=== PATIENT | male | born 1975 | race Hispanic/Latino ===

== ENCOUNTER 2017-04-27 16:26 | Inpatient (IN) | payer MEDICARE, OTHER ==
[2017-04-27] MEDS ORDERED: Morphine 5 MG/ML SYRINGE IVP STA (16:41)
[2017-04-27 17:00] LABS: BASO # 0.08 K/mm3 (0.0-2.0); BASO % 0.6 % (0.0-3.0); EOS # 0.2 (0.0-0.7); EOS % 1.1 % (1.5-5.0); GRAN # 6.93 (1.4-6.5); LYMPH # 5.8 (1.2-3.4); LYMPH % 41.1 % (22.0-35.0); MEAN CELL VOLUME 98.6 fl (80.0-105.0); MEAN CORPUSCULAR HEMOGLOBIN 32.5 pg (25.0-35.0); MONO # 1.2 (0.1-0.6); MONO % 8.2 % (1.0-6.0); RBC 5.75 10^6/uL (3.5-6.1); RED CELL DISTRIBUTION WIDTH 15.4 % (11.5-14.5); WHITE BLOOD COUNT 14.1 10^3/ul (4.5-11.0)
[2017-04-27 17:09] LABS: INR 1.12 (0.93-1.08); PARTIAL THROMBOPLASTIN TIME 43.6 Seconds (25.1-36.5); PROTHROMBIN TIME 12.8 SECONDS (9.4-12.5)
[2017-04-27 17:24] LABS: TROPONIN I < 0.01 ng/mL
[2017-04-27 17:25] LABS: HEMOGLOBIN 18.7 g/dL (14.0-18.0)
[2017-04-27 17:29] LABS: ALT/SGPT 697 U/L (7-56); BLOOD UREA NITROGEN 9 mg/dL (7-21); CALCIUM 10.8 mg/dL (8.4-10.5); GFR AFRICAN-AMERICAN > 60; GFR NON-AFRICAN AMERICAN > 60; MAGNESIUM 2.4 mg/dL (1.7-2.2)
[2017-04-27] MEDS ORDERED: Sodium Chloride 0.9% 1,000 ML IV STA ×2 (17:36→19:32)
[2017-04-27 17:37] LABS: AST/SGOT 372 U/L (17-59)
[2017-04-27] MEDS ORDERED: HYDROmorphone 1 mg/ml ISec IVP STA (17:38)
[2017-04-27] MEDS ORDERED: Iohexol 350 MG/100 ML VIAL ONE (17:42)
--- NOTE | 2017-04-27 18:05 | RAD ---
HISTORY: Chest pain. Portable study 17:37. COMPARISON: No prior. FINDINGS: LUNGS: No active pulmonary disease. PLEURA: No significant pleural effusion identified, no pneumothorax apparent. CARDIOVASCULAR: No radiographic findings to suggest acute or significant cardiovascular disease. OSSEOUS STRUCTURES: No significant abnormalities. VISUALIZED UPPER ABDOMEN: Normal. OTHER FINDINGS: None. IMPRESSION: No active disease. Limitations of the current examination: Portable technique and poor inspiratory effort.
[2017-04-27 18:07] LABS: VENOUS BLOOD GAS BASE EXCESS -3.6 mmol/L (0.0-2.0); VENOUS BLOOD GAS PO2 133 mm/Hg (30-55); VENOUS BLOOD PH 7.39 (7.32-7.43)
[2017-04-27 18:12] LABS: ALBUMIN 5.2 g/dL (3.0-4.8)
[2017-04-27 18:14] LABS: ALB/GLOB RATIO 0.9 (1.1-1.8)
--- NOTE | 2017-04-27 18:51 | CT ---
PROCEDURE: CT Angiography Chest, Abdomen and Pelvis with and without intravenous contrast HISTORY: back pain COMPARISON: None. TECHNIQUE: Contiguous axial images of the chest, abdomen and pelvis were obtained in the phase of aortic enhancement. A noncontrast enhanced CT of the chest was also obtained to evaluate for possible intramural thrombus. Coronal and sagittal reformats were generated. IV dose administered: 100 cc Omnipaque 350 Radiation dose: Total exam DLP = 2536.27 mGy-cm. This CT exam was performed using one or more of the following dose reduction techniques: Automated exposure control, adjustment of the mA and/or kV according to patient size, and/or use of iterative reconstruction technique. FINDINGS: CT ANGIOGRAPHY OF THE CHEST WITH & WITHOUT CONTRAST: AORTA (CHEST AND ABDOMEN): The thoracic and abdominal aorta are unremarkable, without aneurysm, dissection or rupture. No intramural thrombus identified in the thoracic aorta on the non-contrast ct of the chest. The celiac axis, superior mesenteric artery, inferior mesenteric artery and the renal arteries are widely patent. The pelvic arteries are unremarkable. LUNGS: Clear. No nodule, mass or consolidation. MEDIASTINUM: Unremarkable. Normal caliber aorta and pulmonary arterial trunk. No aortic dissection. Normal size heart. LYMPH NODES: Unremarkable. PLEURA: Unremarkable. No pneumothorax. No pleural fluid. BONES: Unremarkable. OTHER FINDINGS: None. CT ANGIOGRAPHY OF THE ABDOMEN AND PELVIS WITH CONTRAST: LIVER: Hepatic steatosis. No focal masses. No intrahepatic bile duct dilatation or perihepatic ascites. GALLBLADDER AND BILE DUCTS: Status post cholecystectomy. No abnormality is seen in the gallbladder fossa. PANCREAS: Unremarkable. No gross lesion or ductal dilatation. SPLEEN: Unremarkable. ADRENALS: Unremarkable. No mass. KIDNEYS AND URETERS: Unremarkable. No hydronephrosis. No solid mass. VASCULATURE: Unremarkable. No aortic aneurysm. STOMACH AND BOWEL: Unremarkable. No obstruction. No gross mural thickening. Constipation without fecal impaction or obstruction. APPENDIX: Normal appendix. PERITONEUM: Unremarkable. No free fluid. No free air. LYMPH NODES: Unremarkable. No enlarged lymph nodes. BLADDER: Unremarkable. REPRODUCTIVE: Unremarkable. BONES: No acute fractureLoss of height of L1 and L3 vertebral bodies. The L1 finding was seen on a prior plain film radiographs from 08/14/2012. The L3 abnormalities new since that time. There are retropulsed fragments from at L1 and L3 impressing upon the spinal canal. This should be producing a mild degree of canal stenosis at L1 and a greater degree of narrowing at L3. There is partial lumbarization of the 1st sacral element. . OTHER FINDINGS: None. IMPRESSION: No evidence of aortic aneurysm or dissection. Fractures of L1 and L3 vertebral bodies with retropulsed fragments. The finding at L1 was seen on a prior plain film from 2012.
[2017-04-27] MEDS ORDERED: Metoprolol 1 mg/ml Inj IVP STA (19:32)
[2017-04-27] MEDS ORDERED: HYDROmorphone 0.5 mg/0.5 ml ISec IVP STA (20:11)
--- NOTE | 2017-04-27 20:53 | CT ---
EXAM: CT Head Without Intravenous Contrast CLINICAL HISTORY: 41 years old, male; Signs and symptoms; Syncope and collapse; Additional info: Loc TECHNIQUE: Axial computed tomography images of the head/brain without intravenous contrast. All CT scans at this facility use one or more dose reduction techniques, viz.: automated exposure control; ma/kV adjustment per patient size (including targeted exams where dose is matched to indication; i.e. head); or iterative reconstruction technique. Coronal and sagittal reformatted images were created and reviewed. COMPARISON: No relevant prior studies available. FINDINGS: Brain: Mild atrophy. No intracranial hemorrhage. No mass. No definite edema. Ventricles: No hydrocephalus. Bones/joints: No acute fracture. Soft tissues: Unremarkable. Sinuses: Scattered minimal mucosal thickening. RIGHT frontal retention cyst. Mastoid air cells: No mastoid effusion. Orbits: Unremarkable as visualized. IMPRESSION: 1. No definite acute intracranial abnormality. 2. Incidental/non-acute findings are described above.
[2017-04-27 21:01] LABS: URINE BILIRUBIN NEGATIVE (NEGATIVE); URINE BLOOD TRACE-INTACT (NEGATIVE); URINE GLUCOSE (UA) NEGATIVE (NEGATIVE); URINE LEUKOCYTE ESTERASE NEGATIVE Leu/uL (NEGATIVE); URINE NITRATE NEGATIVE (NEGATIVE); URINE PROTEIN NEGATIVE mg/dL (<30 mg/dL)
[2017-04-27 21:02] LABS: URINE APPEARANCE CLEAR (CLEAR); URINE COLOR YELLOW (YELLOW)
[2017-04-27 21:15] LABS: BARBITURATES, UR NEGATIVE (NEGATIVE); BENZODIAZEPINES, UR NEGATIVE (NEGATIVE); PHENCYCLIDINE, UR NEGATIVE (NEGATIVE)
[2017-04-27 21:17] LABS: URINE RBC 0 - 2 /hpf (0-2); URINE WBC 0 - 2 /hpf (0-6)
[2017-04-27 21:42] LABS: OPIATES, UR POSITIVE (NEGATIVE)
[2017-04-27 21:52] LABS: HDL CHOLESTEROL 46 mg/dL (29-60)
[2017-04-27 22:02] LABS: LDL CHOLESTEROL 160 mg/dL (0-129)
[2017-04-27] MEDS: Folic Acid 1 MG, Thiamine 100 MG, Multivitamin (MVI) 10 ML in Dextrose 5% In Water 1,00... IV SCH (23:11)
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
[2017-04-27 23:22] LABS: VENOUS BLOOD GAS BASE EXCESS -3.1 mmol/L (0.0-2.0); VENOUS BLOOD GAS PO2 118 mm/Hg (30-55); VENOUS BLOOD PH 7.39 (7.32-7.43)
--- NOTE | 2017-04-27 23:45 | ED PDOC ---
Arrival/HPI - General Chief Complaint: Chest Pain Time Seen by Provider: 04/27/17 16:37 Historian: Patient - History of Present Illness Narrative History of Present Illness (Text): 04/27/17 23:32 41yo male with PMHx of seizure, chronic back pain, alcohol abuse present to ED with complaint of chest pain, SOB, back pain. The friend who was by the bedside states patient suddenly complained of SOB, had a syncopal episode and started foaming from his mouth. Patient complained mostly of sharp severe, constant mid back pain. He states he was on pain medication for his pain, but this pain is worse. He states he have not seen a Doctor for a while and have not taken any of his medications for a while. He denies any nausea, vomiting, diarrhea, abdominal pain, chest pain, dizziness, focal weakness, urinary/fecal incontinence, saddle anesthesia, recent travel, calf pain, any other complaint. Past Medical History - Provider Review Nursing Documentation Reviewed: Yes - Past History Past History: No Previous - Cardiac Hx Hypertension: Yes - Neurological Hx Seizures: Yes - Hematological/Oncological Hx Hepatitis C: Yes - Gastrointestinal Hx Gastroesophageal Reflux: Yes - Psychiatric Hx Anxiety: Yes Hx Bipolar Disorder: Yes Hx Depression: Yes Hx Substance Use: Yes (Heroin) - Surgical History Hx Cholecystectomy: Yes - Suicidal Assessment Feels Threatened In Home Enviroment: No Family/Social History - Physician Review Nursing Documentation Reviewed: Yes Family/Social History: Unknown Family HX Smoking Status: Former Smoker Hx Alcohol Use: Yes Hx Substance Use: Yes (Heroin) Allergies/Home Meds Allergies/Adverse Reactions: Allergies No Known Allergies Allergy (Verified 07/07/14 20:50) Home Medications: Home Meds Medication Instructions Recorded Confirmed Citalopram Hydrobromide [Celexa] 20 mg PO DAILY 08/14/12 07/07/14 Gabapentin [Neurontin] 1,800 mg PO TID 08/14/12 07/07/14 [place] 900 meq PO HS 08/14/12 07/07/14 Trazodone Hydrochloride [Trazodone 250 mg PO DAILY 08/14/12 07/07/14 HCl] Lorazepam [Ativan] 2 mg PO BID 12/11/12 07/07/14 Oxycodone HCl [Oxycontin] 20 mg PO QID 12/11/12 07/07/14 Review of Systems - Physician Review All systems were reviewed & negative as marked: Yes - Review of Systems Constitutional: Normal Eyes: Normal ENT: Normal Respiratory: Normal Cardiovascular: Chest Pain Gastrointestinal: Normal Genitourinary Male: Normal Musculoskeletal: Back Pain Skin: Normal Neurological: Normal Endocrine: Normal Hemo/Lymphatic: Normal Psychiatric: Normal Physical Exam Vital Signs Reviewed: Yes Vital Signs Pulse Resp BP Pulse Ox 04/27/17 23:02 92 H 144/98 H 04/27/17 20:12 114 H 168/101 H 04/27/17 18:56 106 H 20 151/104 H 95 04/27/17 18:00 116 H 20 154/92 H 95 04/27/17 16:36 145 H 30 H 150/115 H 96 Temperature: Afebrile Blood Pressure: Hypertensive Pulse: Tachycardic Respiratory Rate: Normal Appearance: Positive for: Well-Appearing, Non-Toxic, Uncomfortable, Other ( Diaphoretic) Pain Distress: Severe Mental Status: Positive for: Alert and Oriented X 3 - Systems Exam Head: Present: Atraumatic, Normocephalic Pupils: Present: PERRL Extroacular Muscles: Present: EOMI Conjunctiva: Present: Normal Mouth: Present: Moist Mucous Membranes Neck: Present: Normal Range of Motion Respiratory/Chest: Present: Clear to Auscultation, Good Air Exchange, Tachypneic. No: Respiratory Distress, Accessory Muscle Use, Wheezes, Decreased Breath Sounds, Rales, Retracting, Rhonchi Cardiovascular: Present: Regular Rate and Rhythm, Normal S1, S2. No: Murmurs Abdomen: Present: Normal Bowel Sounds. No: Tenderness, Distention, Peritoneal Signs, Rebound, Guarding, McBurney's Point Tender, Rovsing's Sign Present Back: No: Midline Tenderness, Paraspinal Tenderness, Pain with Leg Raise Upper Extremity: Present: Normal Inspection. No: Cyanosis, Edema Lower Extremity: Present: Normal Inspection. No: Edema Neurological: Present: GCS=15, CN II-XII Intact, Speech Normal, Motor Func Grossly Intact, Other (No focal neurological deficit) Skin: Present: Warm, Dry, Normal Color. No: Rashes Psychiatric: Present: Alert, Oriented x 3, Normal Insight, Normal Concentration Medical Decision Making ED Course and Treatment: 04/27/17 23:49 41yo male present with complaint of severe mid back pain, chest pain and SOB. PT was diaphoretic, tachy, hypertensive and physically in pain on presentation.He was seen as soon as he came in to ED EKG Sinus tachycardia with Nonspecific ST and Twave abnormality @145 bpm. His Vs improved in ED with pain medication and Lopressor. CXR NAD Head CT - No acute finding Dissecting protocol Angio - Negative Leukocytosis, AG of 36; LDH >1000 and abnormal LFT's was noted Pt was hydrated in ED On further questioning he notes that he drinks alcohol heavily daily. states the last time he drank was two days ago, because he wasn't feeling well. PT is question seizure secondary to alcohol withdrawal. Case was DW Dr. Barreto, He accepted pt into his service. He saw pt by the bedside in ED. - Lab Interpretations Lab Results: 04/27/17 16:35 04/27/17 16:35 Lab Results 04/27/17 18:40: Influenza Typ A,B (EIA) Negative for flu a/b 04/27/17 17:45: pO2 133 H, VBG pH 7.39, VBG pCO2 34.0 L, VBG HCO3 20.6 L, VBG Total CO2 21.6 L, VBG O2 Sat (Calc) 99.2 H, VBG Base Excess -3.6 L, VBG Potassium 5.0, Glucose 143 H, Lactate 2.2 H, FiO2 21.0, Sodium 134.0, Chloride 104.0, Venous Blood Potassium 5.0 04/27/17 16:35: Triglycerides 147, Cholesterol 235 H, LDL Cholesterol Direct 160 H, HDL Cholesterol 46, Vitamin B12 Pending, Folate Pending 04/27/17 16:35: Alcohol, Quantitative < 10 04/27/17 16:35: PT 12.8 H, INR 1.12 H, APTT 43.6 H 04/27/17 16:35: Sodium 144, Potassium 4.3, Chloride 103, Carbon Dioxide 9 L, Anion Gap 36 H, BUN 9, Creatinine 1.0, Est GFR ( Amer) > 60, Est GFR (Non -Af Amer) > 60, Random Glucose 138 H, Calcium 10.8 H, Magnesium 2.4 H, Total Bilirubin 1.5 H, AST 372 H, ALT 697 H, Alkaline Phosphatase 128 H, Lactate Dehydrogenase 1150 H, Total Creatine Kinase 159, Troponin I < 0.01, Total Protein 10.8 H, Albumin 5.2 H, Globulin 5.6, Albumin/Globulin Ratio 0.9 L 04/27/17 16:35: WBC 14.1 H, RBC 5.75, Hgb 18.7 H*, Hct 56.7 H*, MCV 98.6, MCH 32.5, MCHC 33.0, RDW 15.4 H, Plt Count 229, MPV 10.0, Gran % 49.0 L, Lymph % ( Auto) 41.1 H, [place] % (Auto) 8.2 H, Eos % (Auto) 1.1 L, Baso % (Auto) 0.6, Gran # 6.93 H, Lymph # 5.8 H, [place] # 1.2 H, Eos # 0.2, Baso # 0.08 - RAD Interpretation Radiology Orders: 04/27/17 16:37 ANGIOGRAPHY DISECTION PROTOCOL [CT] Stat 04/27/17 17:26 CHEST PORTABLE [RAD] Stat 04/27/17 19:01 HEAD W/O CONTRAST [CT] Stat - Medication Orders Current Medication Orders: Chlordiazepoxide (Librium) 25 mg PO Q6 [facility] PRN Reason: Taper Stop: 05/01/17 21:14 Chlordiazepoxide (Librium) 50 mg PO Q4H PRN PRN Reason: Symptoms of alcohol withdrawl Clonidine HCl (Catapres) 0.1 mg PO Q4H PRN PRN Reason: Symptoms of alcohol withdrawl Enoxaparin Sodium (Lovenox) 40 mg SC DAILY [facility] PRN Reason: Protocol Folic Acid (Folic Acid) 1 mg PO DAILY [facility] Haloperidol Lactate (Haldol) 2 mg IM Q8H PRN PRN Reason: Agitation Folic Acid 1 mg/ Thiamine HCl 100 mg/ Multivitamins/Vitamin C 10 ml/ Dextrose 1 ,011.2 mls @ 100 mls/hr IV .Q10H7M [facility] Stop: 04/29/17 03:35 Last Admin: 04/27/17 23:11 Dose: 100 mls/hr eMAR Start Stop Document 04/27/17 23:11 RD (Rec: 04/27/17 23:11 RD [id number]) Intravenous Solution Start Date 04/27/17 Start Time 23:11 Doxycycline Hyclate 100 mg/ (Sodium Chloride) 100 mls @ 100 mls/hr IVPB Q12 [facility] PRN Reason: Protocol Stop: 05/07/17 10:59 Last Admin: 04/27/17 23:19 Dose: 100 mls/hr eMAR Start Stop Document 04/27/17 23:19 RD (Rec: 04/27/17 23:20 RD [id number]) Intravenous Solution Start Date 04/27/17 Start Time 23:19 End Date 04/28/17 End time 00:19 Total Infusion Time 60 Ceftriaxone Sodium (Rocephin 2 Gm Ivpb) 2 gm in 100 mls @ 100 mls/hr IVPB DAILY [facility] PRN Reason: Protocol Ketorolac Tromethamine (Toradol) 15 mg IVP Q8H [facility] Stop: 04/29/17 14:16 Last Admin: 04/27/17 23:02 Dose: 15 mg MAR Pain Assessment Document 04/27/17 23:02 RD (Rec: 04/27/17 23:02 RD [id number]) Pain Reassessment Is this a pain reassessment? No Sleep Is patient sleeping during reassessment? No Presence of Pain Presence of Pain Yes IVP Administration Document 04/27/17 23:02 RD (Rec: 04/27/17 23:02 RD [id number]) Charges for Administration # of IVP Administrations 1 Lidocaine (Lidoderm) 1 ea TD DAILY [facility] Lorazepam (Ativan) 1 mg IVP Q4H PRN PRN Reason: Symptoms of alcohol withdrawl Metoprolol Tartrate (Lopressor) 25 mg PO BID [facility] Last Admin: 04/27/17 23:02 Dose: 25 mg MAR Pulse and Blood Pressure Document 04/27/17 23:02 RD (Rec: 04/27/17 23:02 RD [id number]) Pulse Pulse Rate (60-90 beats/min) 92 Blood Pressure Blood Pressure (100/60-150/90 mm Hg) 144/98 Multivitamins/Minerals (Therapeutic-M Tab) 1 tab PO DAILY [facility] Pantoprazole Sodium (Protonix Ec Tab) 40 mg PO 0600,1600 [facility] Trazodone HCl (Desyrel) 50 mg PO HS PRN PRN Reason: Insomnia Discontinued Medications Famotidine (Pepcid) 20 mg IVP STAT STA Stop: 04/27/17 19:20 Last Admin: 04/27/17 20:10 Dose: 20 mg IVP Administration Document 04/27/17 20:10 RD (Rec: 04/27/17 20:13 RD [id number]) Charges for Administration # of IVP Administrations 1 Hydromorphone HCl (Dilaudid) 1 mg IVP STAT STA Stop: 04/27/17 17:39 Last Admin: 04/27/17 17:52 Dose: 1 mg MAR Pain Assessment Document 04/27/17 17:52 YP (Rec: 04/27/17 17:52 YP [id number]) Pain Reassessment Is this a pain reassessment? Yes Sleep Is patient sleeping during reassessment? No Presence of Pain Presence of Pain Yes IVP Administration Document 04/27/17 17:52 YP (Rec: 04/27/17 17:52 YP [id number]) Charges for Administration # of IVP Administrations 1 Hydromorphone HCl (Dilaudid) 0.5 mg IVP STAT STA Stop: 04/27/17 20:12 Last Admin: 04/27/17 20:20 Dose: 0.5 mg MAR Pain Assessment Document 04/27/17 20:20 RD (Rec: 04/27/17 20:20 RD [id number]) Pain Reassessment Is this a pain reassessment? No Sleep Is patient sleeping during reassessment? No Presence of Pain Presence of Pain Yes IVP Administration Document 04/27/17 20:20 RD (Rec: 04/27/17 20:20 RD [id number]) Charges for Administration # of IVP Administrations 1 Sodium Chloride (Sodium Chloride 0.9%) 1,000 mls @ 999 mls/hr IV .Q1H1M STA Stop: 04/27/17 18:36 Last Admin: 04/27/17 17:37 Dose: 999 mls/hr eMAR Start Stop Document 04/27/17 17:37 YP (Rec: 04/27/17 17:37 YP [id number]) Intravenous Solution Start Date 04/27/17 Start Time 17:37 End Date 04/27/17 End time 18:37 Total Infusion Time 60 Sodium Chloride (Sodium Chloride 0.9%) 1,000 mls @ 999 mls/hr IV .Q1H1M STA Stop: 04/27/17 20:32 Last Admin: 04/27/17 20:13 Dose: 999 mls/hr eMAR Start Stop Document 04/27/17 20:13 RD (Rec: 04/27/17 20:13 RD [id number]) Intravenous Solution Start Date 04/27/17 Start Time 20:13 End Date 04/27/17 End time 21:13 Total Infusion Time 60 Lorazepam (Ativan) 2 mg IVP ONCE ONE PRN Reason: Protocol Stop: 04/27/17 16:42 Last Admin: 04/27/17 16:51 Dose: 2 mg IVP Administration Document 04/27/17 16:51 YP (Rec: 04/27/17 16:52 YP [id number]) Charges for Administration # of IVP Administrations 1 Metoprolol Tartrate (Lopressor) 5 mg IVP STAT STA Stop: 04/27/17 19:33 Last Admin: 04/27/17 20:12 Dose: 5 mg IVP Administration Document 04/27/17 20:12 RD (Rec: 04/27/17 20:13 RD [id number]) Charges for Administration # of IVP Administrations 1 MAR Pulse and Blood Pressure Document 04/27/17 20:12 RD (Rec: 04/27/17 20:13 RD [id number]) Pulse Pulse Rate (60-90 beats/min) 114 Blood Pressure Blood Pressure (100/60-150/90 mm Hg) 168/101 Morphine Sulfate (Morphine) 5 mg IVP STAT STA Stop: 04/27/17 16:42 Last Admin: 04/27/17 16:52 Dose: 5 mg IVP Administration Document 04/27/17 16:52 YP (Rec: 04/27/17 16:52 YP [id number]) Charges for Administration # of IVP Administrations 1 Disposition/Present on Arrival - Present on Arrival Any Indicators Present on Arrival: No History of DVT/PE: No History of Uncontrolled Diabetes: No Urinary Catheter: No History of Decub. Ulcer: No History Surgical Site Infection Following: None - Disposition Have Diagnosis and Disposition been Completed?: Yes Diagnosis: Back pain, Chest pain, Leukocytosis, Alcohol withdrawal syndrome Disposition: HOSPITALIZED Disposition Time: 18:00 Patient Plan: Admission Condition: FAIR
[2017-04-28 01:17] LABS: FREE T4 1.48 ng/dL (0.78-2.19); T4 11.8 ug/dL (5.5-11.0)
[2017-04-28 05:29] LABS: BASO # 0.02 K/mm3 (0.0-2.0); BASO % 0.2 % (0.0-3.0); EOS # 0.1 (0.0-0.7); EOS % 0.8 % (1.5-5.0); GRAN # 5.99 (1.4-6.5); GRAN % 68.1 % (50.0-68.0); HEMOGLOBIN 16.8 g/dL (14.0-18.0); LYMPH # 1.8 (1.2-3.4); LYMPH % 20.9 % (22.0-35.0); MEAN CELL VOLUME 95.7 fl (80.0-105.0); MEAN CORPUSCULAR HEMOGLOBIN 32.7 pg (25.0-35.0); MEAN CORPUSCULAR HGB CONC 34.2 g/dl (31.0-37.0); MEAN PLATELET VOLUME 9.7 fl (7.0-11.0); MONO # 0.9 (0.1-0.6); RBC 5.13 10^6/uL (3.5-6.1); RED CELL DISTRIBUTION WIDTH 15.6 % (11.5-14.5); WHITE BLOOD COUNT 8.8 10^3/ul (4.5-11.0)
[2017-04-28 05:51] LABS: LDL CHOLESTEROL 133 mg/dL (0-129)
[2017-04-28 05:57] LABS: ALB/GLOB RATIO 1.2 (1.1-1.8); ALBUMIN 4.7 g/dL (3.0-4.8); ALT/SGPT 572 U/L (7-56); AST/SGOT 273 U/L (17-59); BILIRUBIN,DIRECT 0.7 mg/dL (0.0-0.4); BLOOD UREA NITROGEN 12 mg/dL (7-21); CALCIUM 9.7 mg/dL (8.4-10.5); GFR AFRICAN-AMERICAN > 60; GFR NON-AFRICAN AMERICAN > 60; HDL CHOLESTEROL 33 mg/dL (29-60); MAGNESIUM 2.2 mg/dL (1.7-2.2)
--- NOTE | 2017-04-28 06:28 | HP ---
HISTORY OF PRESENT ILLNESS: The patient is a 41-year-old male. According to the patient, the patient's uncle, and the patient's mother, the patient came to the emergency room complaining of back pain. The patient came to the ER as ambulatory walk-in, but according to the patient's uncle and the patient's mother, the patient was in his usual state of health until this morning. The patient was in the car with his uncle, when the patient started having foaming around his mouth and having involuntary movement and according to the patient's uncle, the patient passed out for at least 5 minutes. The patient was noted to have foaming around the mouth, which was wiped out and cleaned by the patient's uncle. After that the patient started complaining of chest pain and back pain. The patient also admits that he stopped drinking 4 days ago and he has been alcohol binging for months since the of his brother, which was also confirmed by the patient's mother. REVIEW OF SYSTEMS: The patient's 13-system review is pertinent for positive above and dictated. CODE STATUS: Full code. LIVING WILL ADVANCE DIRECTIVE: None. HOME MEDICATIONS: The patient states that he has stopped all medication for more than a month, but the patient's listed home medications in the [facility] is trazodone 150 mg, OxyContin 20 mg 4 times a day, Ativan 2 mg twice a day, lithium 900 mg at bedtime, Neurontin 1800 mg 3 times a day, Celexa 20 mg daily, but the patient states that he has not taking any medicines for more than a month. SOCIAL HISTORY: The patient's social history positive for heroin, positive for alcohol, positive for former smoker. The patient admits drinking alcohol every day until about 4 days ago. OCCUPATIONAL HISTORY: Disabled. FAMILY HISTORY: Not available. PAST MEDICAL AND SURGICAL HISTORY: The patient has history of multiple inpatient psychiatric treatment, recently discharged about a month or 2 ago from [facility]. After that he is not taking any medications. The patient's past medical history is significant for chronic narcotic dependent pain syndrome, but without any pain medication for more than a month, history of questionable insomnia, depression, history of bipolar disorder, history of nicotine, alcohol and heroin abuse. The patient's past medical history is also significant for history of left leg injury, status post left leg surgery, history of cholecystectomy, history of right rotator cuff surgery, history of hypertension, history of cholecystectomy, history of hepatitis C, history of gastroesophageal reflux, history of right shoulder rotator cuff surgery, history of seizure history of depression, history of anxiety, history of alcohol use, history of heroin use, history of hepatitis B and C. The patient's past medical history is significant for lumbar disk disease, history of major depression, history of transaminitis, history of positive cocaine use, history of marijuana use, history of opioid use, history of questionable borderline B12 deficiency, history of obesity with elevated body mass index, history of hepatomegaly with hepatic steatosis and fatty liver, history of cholecystectomy, history of questionable mesenteric adenitis, history of poor compliance and noncompliance, history of depression, history of mood disorder, history of bipolar disorder. Past medical history is also significant for mixed type bipolar disorder, history of borderline personality disorder, history of substance abuse, alcohol abuse, history of suicidal ideation, history of multiple inpatient psychiatric hospitalizations with the patient inpatient rehab, history of polysubstance abuse, cocaine, marijuana opioid abuse, history of ethylene glycol intoxication, and history of suicide attempt by drinking antifreeze mixed with Gatorade, history of right shoulder dislocation, cervical spine degenerative disk disease and severe C3-C4, C5-C6 foramen stenosis. FAMILY HISTORY: Father of pharyngeal carcinoma. Mother hypertension and diabetic. PHYSICAL EXAMINATION: GENERAL: The patient is seen in stretcher number 4 in the emergency room. The patient's uncle and the mother is at bedside. The patient is alert, awake, responsive. The patient is complaining of some back pain. The patient appears to be tremulous. VITAL SIGNS: Height is 5 feet 11 inches, weight is 225, and BMI is 31.4. The patient is afebrile, heart rate 145, 116, 104, 114, 106, blood pressure ranging from 150/115 to 168/101 to 154/92, respirations 20 to 30, and O2 saturation 95% to 96%. HEAD: Normocephalic, atraumatic. HEENT: Shows pink conjunctivae. Dry oral mucosa. No oropharyngeal lesion. NECK: No neck rigidity. No visible jugular venous distention. No audible carotid bruit. CHEST: Kyphosis. LUNGS: Shows no rales, crackles, or wheezing. CARDIOVASCULAR: S1 and S2, tachycardic rhythm. Unable to appreciate any murmur, gallop, or rub. ABDOMEN: Protuberant and soft. Positive bowel sounds. No guarding. No rigidity. No rebound tenderness. No costovertebral angle tenderness. Slight hepatomegaly noted. No splenomegaly noted. GENITALIA: Male. RECTAL: Deferred. EXTREMITIES: Shows positive left leg surgical scar with deformity of the left lateral leg noted. No pitting edema. No calf tenderness. No Homans' sign. No clubbing. No cyanosis. VASCULAR: Palpable pulses. MUSCULOSKELETAL: Shows a body mass index of 31. Positive right shoulder surgical scar. NEUROLOGIC: The patient is alert, awake, oriented x3. He is able to follow commands, move upper and lower extremity without assistance. Positive tremulousness noted. Positive asterixis noted. Cranial nerves II through XII limited. Gait examination could not be tested. DIAGNOSTICS: WBC 14.1, hemoglobin/hematocrit 18.7/56.7, platelet 229, granulocytes 49, lymphs 41. PT/PTT 12.8/43.6. VBG shows a lactate of 2.2. Chemistry; sodium 144, potassium 4.3, chloride 103, CO2 9, anion gap 36, BUN 9, creatinine 1.0, GFR greater than 60, glucose 138, calcium 10.8, magnesium 2.4, total bilirubin 1.5, AST 372, ALT 697, alkaline phosphatase 128. LDH 11 50. Troponin 0.01. Total protein 10.8, albumin 5.2. Urine pH 6.0, specific gravity 1.010, trace blood. Urine drug screen positive for opioids. Alcohol negative. Influenza negative. Alcohol level less than 10, the patient last drink 4 days ago. The patient had a CT of the head done for evaluation of syncope and questionable seizure, which shows cerebral cortical atrophy, right frontal sinus retention cyst. The patient was also sent for chest x-ray, which shows no active disease. The patient had a CT angio done because of the complaint of back pain and syncope. CT angio was reviewed. EKG shows sinus tachycardia, S wave and poor R wave progression in V1, ST-T changes in the lateral leads, etiology undetermined. IMPRESSION: 1. Witnessed syncope and questionable possible seizure with mouth foaming. 2. Back pain and chest pain, etiology undetermined. 3. Shortness of breath. 4. Sinus tachycardia. 5. Uncontrolled accelerated hypertension versus hypertensive emergency and urgency. 6. Tachypnea. 7. Possible systemic inflammatory response syndrome. 8. Leukocytosis. 9. Erythrocytosis. 10. Lymphocytosis. 11. Mild coagulopathy. 12. Lactic acidosis. 13. Increased anion gap, metabolic acidosis. 14. Hyperglycemia. 15. Hypercalcemia, hypermagnesemia. 16. Transaminitis. 17. Microscopic hematuria. 18, Urine drug screen positive for opioids. 19. History of alcohol dependence, stopped 4 days ago. 20. History of polysubstance abuse. 21. History of poor compliance. 22. History of bipolar disorder. 23. Hepatic steatosis and fatty liver. 24. Cholecystectomy. 25. Constipation. 26. L1-L3 vertebral body fracture with retropulsion. 27. Cerebral cortical atrophy of the brain. 28. Right frontal sinus retention cyst. 29. Sinus tachycardia. 30. Nonspecific ST-T changes. 31. History of depression, history of mood disorder, history of bipolar disorder, history of suicide attempt history. 32. Obesity. PLAN: At this time, the patient will be admitted to Telemetry. The patient has been ordered stat ammonia, vitamin B12, folate. Thyroid profile ordered. Hemoglobin A1c ordered. Hepatitis A, B, C serologies ordered. Lipid panel ordered. Repeat serial CMP, LFTs, magnesium ordered for the morning. HIV ordered. Repeat CBC has been ordered in the morning. The patient has been ordered blood and urine cultures. Current consultation, Gastroenterology, Neurology, Infectious Disease, Cardiology, and Psychiatry. The patient has been ordered RPR. The patient is started on Ativan 1 mg IV q.4 hours p.r.n. The patient is started on banana bag. The patient is started on clonidine 0.1 mg p.o. q.4 hours p.r.n. and Desyrel 50 mg at bedtime p.r.n. The patient is given 2 doses of Dilaudid in the emergency room 0.5 and 1 mg. The patient started empirically on doxycycline 100 mg IV q.12 hours, folic acid 1 mg daily Haldol 2 mg IM q.8 hours p.r.n., Librium 50 mg p.o. q.4 hours p.r.n. and Librium 25 mg p.o. q.6 hours tapering doses. The patient is given Lidoderm 5% patch to the affected area, Lopressor 25 mg twice a day, Lovenox 40 mg subcutaneously daily. The patient was started on proton GI prophylaxis, Protonix 40 mg twice a day, Rocephin 2 g IV daily. The patient was started on multivitamin 1 tablet daily. In addition, ultrasound of the abdomen, carotid Doppler, MRI/MRA brain, MRI of the lumbar spine, repeat EKG, echo with Doppler EEG ordered. The patient is started on regular diet. The patient is put on alcohol withdrawal assessment protocol. The patient is put on aspiration precaution. The patient has been ordered neuro checks, seizure precaution. Repeat EKG has been ordered. At present, the patient and the patient's family was advised about the details of his medical condition, need for hospitalization, need for evaluation, need for management, need for further diagnostic therapeutic intervention, treatment discussed and explained to the patient and need for further diagnostic therapeutic intervention was advised. The patient was told about need for Gastroenterology, Infectious Disease, Neurology, Cardiology and Psychiatry evaluation and awaiting their recommendation. Dictated and electronically signed, not read. Wilber Barreto MD
[2017-04-28] MEDS: Pantoprazole 40 mg EC Tab PO SCH ×2 (06:51→15:27)
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
--- NOTE | 2017-04-28 09:35 | US ---
HISTORY: TRANSAMINITIS COMPARISON: None. TECHNIQUE: Sonographic evaluation of the abdomen. FINDINGS: LIVER: Measures 19.6 cm. Mildly enlarged. Smooth contour. Diffusely increased echogenicity consistent with fatty infiltration. No mass. No biliary ductal dilatation. Echogenicity of the liver parenchyma. GALLBLADDER: Status post cholecystectomy COMMON BILE DUCT: Measures 9 mm. Consistent with prior cholecystectomy. PANCREAS: Unremarkable as visualized. No mass. No ductal dilatation. RIGHT KIDNEY: Measures 12.3cm. Normal echogenicity. No calculus, mass, or hydronephrosis. LEFT KIDNEY: Measures 12.7cm. Normal echogenicity. No calculus, mass, or hydronephrosis. SPLEEN: Mild splenomegaly. The spleen measures 14.3 cm in greatest length. AORTA: No aneurysmal dilatation. IVC: Unremarkable. OTHER FINDINGS: None. IMPRESSION: Mild hepatosplenomegaly. Fatty infiltration of the liver. Status post cholecystectomy. Otherwise unremarkable.
[2017-04-28] MEDS ORDERED: cefTRIAXone 2 GM IN NS 2 GM/100 ML BAG IVPB SCH (10:00)
--- NOTE | 2017-04-28 10:43 | CARD ---
APPROVED REPORT EKG Measurement Heart [id number] [id number] <Conclusion> Normal sinus rhythm Normal ECG
--- NOTE | 2017-04-28 10:49 | CP.PCM.PN ---
Subjective - Date & Time of Evaluation Date of Evaluation: 04/28/17 Time of Evaluation: 10:32 - Subjective Subjective: IM Progress Note for Dr. Barreto service Patient seen and examined at bedside. No acute events reported since admission. Patient still chronically complaining of pain (multiple pains, but back pain most prominently), requesting more pain medication repeatedly. Denies shortness of breath, chest pain, nausea, emesis. Objective - Vital Signs/Intake and Output Vital Signs (last 24 hours): Temp Pulse Resp BP Pulse Ox 97.8 F 70 16 104/68 91 L 04/28/17 08:03 04/28/17 10:29 04/28/17 10:29 04/28/17 10:29 04/28/17 10:29 - Medications Medications: Current Medications Chlordiazepoxide (Librium) 25 mg PO Q6 [facility] PRN Reason: Taper Stop: 05/01/17 21:14 Last Admin: 04/28/17 06:51 Dose: 25 mg Chlordiazepoxide (Librium) 50 mg PO Q4H PRN PRN Reason: Symptoms of alcohol withdrawl Last Admin: 04/28/17 03:37 Dose: 50 mg Clonidine HCl (Catapres) 0.1 mg PO Q4H PRN PRN Reason: Symptoms of alcohol withdrawl Enoxaparin Sodium (Lovenox) 40 mg SC DAILY [facility] PRN Reason: Protocol Folic Acid (Folic Acid) 1 mg PO DAILY [facility] Haloperidol Lactate (Haldol) 2 mg IM Q8H PRN PRN Reason: Agitation Last Admin: 04/28/17 01:29 Dose: 2 mg Folic Acid 1 mg/ Thiamine HCl 100 mg/ Multivitamins/Vitamin C 10 ml/ Dextrose 1 ,011.2 mls @ 100 mls/hr IV .Q10H7M [facility] Stop: 04/29/17 03:35 Last Admin: 04/27/17 23:11 Dose: 100 mls/hr Doxycycline Hyclate 100 mg/ (Sodium Chloride) 100 mls @ 100 mls/hr IVPB Q12 [facility] PRN Reason: Protocol Stop: 05/07/17 10:59 Last Admin: 04/27/17 23:19 Dose: 100 mls/hr Ceftriaxone Sodium (Rocephin 2 Gm Ivpb) 2 gm in 100 mls @ 100 mls/hr IVPB DAILY [facility] PRN Reason: Protocol Ketorolac Tromethamine (Toradol) 30 mg IVP Q8H [facility] Stop: 04/29/17 14:16 Last Admin: 04/28/17 03:37 Dose: 30 mg Lidocaine (Lidoderm) 1 ea TD DAILY [facility] Lorazepam (Ativan) 1 mg IVP Q4H PRN PRN Reason: Symptoms of alcohol withdrawl Last Admin: 04/28/17 01:29 Dose: 1 mg Metoprolol Tartrate (Lopressor) 25 mg PO BID [facility] Last Admin: 04/27/17 23:02 Dose: 25 mg Multivitamins/Minerals (Therapeutic-M Tab) 1 tab PO DAILY [facility] Ondansetron HCl (Zofran Inj) 4 mg IVP Q4H PRN PRN Reason: Nausea/Vomiting Pantoprazole Sodium (Protonix Ec Tab) 40 mg PO 0600,1600 [facility] Last Admin: 04/28/17 06:51 Dose: 40 mg Trazodone HCl (Desyrel) 50 mg PO HS PRN PRN Reason: Insomnia Last Admin: 04/28/17 03:37 Dose: 50 mg - Labs Labs: 04/28/17 05:10 04/28/17 05:10 PT 12.8 SECONDS (9.4-12.5) H 04/27/17 16:35 INR 1.12 (0.93-1.08) H 04/27/17 16:35 APTT 43.6 Seconds (25.1-36.5) H 04/27/17 16:35 - Constitutional Appears: Non-toxic, No Acute Distress - Head Exam Head Exam: ATRAUMATIC, NORMAL INSPECTION, NORMOCEPHALIC - Eye Exam Eye Exam: EOMI, Normal appearance. absent: Conjunctival injection, Scleral icterus Pupil Exam: absent: Irregular, Unequal - ENT Exam ENT Exam: Mucous Membranes Moist - Respiratory Exam Respiratory Exam: Clear to Ausculation Bilateral, NORMAL BREATHING PATTERN. absent: Accessory Muscle Use, Chest Wall Tenderness, Decreased Breath Sounds, Rales, Rhonchi, Wheezes - Cardiovascular Exam Cardiovascular Exam: REGULAR RHYTHM, RRR, +S1, +S2. absent: Bradycardia, Tachycardia, Irregular Rhythm, JVD, +S4 - GI/Abdominal Exam GI & Abdominal Exam: Soft, Normal Bowel Sounds. absent: Distended, Guarding, Rigid, Tenderness - Rectal Exam Rectal Exam: Deferred - Extremities Exam Extremities Exam: Normal Capillary Refill, Normal Inspection. absent: Calf Tenderness, Pedal Edema, Tenderness - Back Exam Back Exam: vertebral tenderness (predominantly lumbar and lower thoracic region) - Neurological Exam Neurological Exam: Alert, Awake, Oriented x3 - Psychiatric Exam Psychiatric exam: Anxious, Normal Affect - Skin Skin Exam: Dry, Intact, Normal Color, Warm Assessment and Plan - Assessment and Plan (Free Text) Assessment: This is a 41 yo male with a past medical history of alcohol abuse, Hepatitis C , Bipolar disorder, and depression who was admitted for seizures, likely secondary to alcohol withdrawal. He is also being worked up for possible spinal compression fracture. Plan: 1) Seizure/Syncope -likely due to alcohol withdrawal (drinks 1/2-1 handle vodka per day, none for last 4 days) vs 2/2 illicit drug use (hx heroin and cocaine) vs psychogenic -alcohol < 10 on admission, noted hx of abuse, claims to have stopped for last 4 days due to feeling like he has the flu -Head CT negative for acute pathology, notable for right frontal retention cyst -Carotid duplex and Echo obtained, pending official reads -MRI/MRA head ordered, pending -EEG ordered, pending -CIWA protocol, scheduled librium, prn ativan and librium, prn haldol for agitation -Neuro and Cardio consulted, appreciate all recs -Psych consulted for EtOH dependency, appreciate all recs -Seizure precautions 2) Hepatitis C hx -Most likely obtained due to hx of IV drug abuse, also has hx of medication non- compliance -LFTs elevated but improved over level on admission -Hepatitis Panel pending -Abdominal ultrasound notable for hepatosplenomegaly, fatty infiltration of liver -GI consulted, appreciate all recs 3) Acute on chronic back pain -Lidocaine patch daily, toradol prn (5 doses total) for pain control -CTA lumbar spine- No acute fracture. Loss of height of L1 and L3 vertebral bodies. The L1 finding was seen on a prior plain film radiographs from 2012. The L3 abnormalities new since that time. There are retropulsed fragments from at L1 and L3 impressing upon the spinal canal. This should be producing a mild degree of canal stenosis at L1 and a greater degree of narrowing at L3. There is partial lumbarization of the 1st sacral element. -MRI Spinal canal lumbar pending, if compression fracture can consult IR for kyphoplasty, otherwise will consult pain management -No additional opioids for pain management given risk of opioids lowering seizure threshold as per Neuro 4) Neuropathy -may be 2/2 Vitamin B12/folate deficiency from alcohol abuse vs DM vs 2/2 spinal cord compression -HgA1c, Vit B12, and folate levels ordered -Banana bag with folate and B12 running -MRI spinal canal pending 5) Hypertension -may be component from back pain, some improvement in ED after receiving initial pain medication -continue clonidine 6) Leukocytosis - improved -reactive 2/2 pain vs infection with unidentified source -WBCs decreased to 8.8 -Continue on Doxycycline and rocephin, pending ID's recs -Blood and urine cultures pending -HIV and RPR pending -Infectious disease consulted; recommendations appreciated 7) Bipolar disorder -haloperidol -Psychiatry consulted; recommendations appreciated 8) Insomnia -trazodone HS PRN Dispo: Telemetry, pending spinal MRI and input and recs from Neuro, Cardio, and GI FEN: Regular diet, Banana bag at 100cc/hr Access: Peripheral IV Consults: Neuro, Cardio, Psych, GI Ppx: Protonix for GI, Lovenox for DVT Patient seen, reviewed, and discussed with attending, Dr. Barreto
--- NOTE | 2017-04-28 10:52 | CARD ---
APPROVED REPORT EKG Measurement Heart [id number] <Conclusion> Sinus tachycardia Nonspecific ST and T wave abnormality Abnormal ECG
[2017-04-28] MEDS: Folic Acid 1 MG, Thiamine 100 MG, Multivitamin (MVI) 10 ML in Dextrose 5% In Water 1,00... IV SCH ×2 (10:56→20:42)
[2017-04-28] MEDS: Lidocaine 5% Patch TD SCH (11:15)
[2017-04-28] MEDS: Enoxaparin 40 mg Syringe SC SCH (11:18)
[2017-04-28] MEDS: Multivitamin With Minerals Tab PO SCH (11:30)
--- NOTE | 2017-04-28 12:14 | CARD ---
APPROVED REPORT EXAM: Two-dimensional and M-mode echocardiogram with Doppler and color Doppler. INDICATION HTN/ST 2D DIMENSIONS Left Atrium (2D)3.9 (1.6-4.0cm)IVSd1.0 (0.7-1.1cm) LVDd5.3 (3.9-5.9cm)PWd1.2 (0.7-1.1cm) LVDs3.6 (2.5-4.0cm)FS (%) 31.2 % LVEF (%)58.5 (>50%) M-Mode DIMENSIONS Aortic Root3.70 (2.2-3.7cm)Aortic Cusp Exc.2.30 (1.5-2.0cm) Aortic Valve AoV Peak Qkumeqil224.0cm/Adithya Peak GR.8mmHg Mitral Valve MV E Velslcpb15.7cm/sMV A Mewpfpga57.8cm/sE/A ratio1.1 TDI Lateral E' Peak V8.19cm/sMedial E' Peak V6.92cm/sE/Lateral E'7.4 E/Medial E'8.8 Pulmonary Valve PV Peak Sgyyallf17.3cm/sPV Peak Grad.3mmHg Tricuspid Valve TR Peak Yhdojlca532qc/sRAP [id number] Peak Gr.23mmHg [id number] LEFT VENTRICLE The left ventricle is normal size. There is borderline concentric left ventricular hypertrophy. The left ventricular function is normal. The left ventricular ejection fraction is within the normal range. There is normal LV segmental wall motion. RIGHT VENTRICLE The right ventricle is normal size. The right ventricular systolic function is normal. ATRIA The left atrium is borderline dilated. The right atrium is mildly dilated. The interatrial septum is intact with no evidence for an atrial septal defect. AORTIC VALVE The aortic valve is normal in structure. No aortic regurgitation is present. There is no aortic valvular stenosis. MITRAL VALVE The mitral valve is normal in structure. There is no mitral valve regurgitation noted. TRICUSPID VALVE The tricuspid valve is normal in structure. There is mild tricuspid regurgitation. PULMONIC VALVE The pulmonary valve is normal in structure. GREAT VESSELS The aortic root is normal in size. The IVC is normal in size and collapses >50% with inspiration. PERICARDIAL EFFUSION There is no pleural effusion. There is no pericardial effusion. <Conclusion> Dilated RA. Borderline LA enlargement. Normal LV size and systolic function. Borderline concentric LVH. Mild tricuspid regurgitation.
[2017-04-28 13:07] LABS: HEPATITIS B SURFACE AG NEGATIVE (NEGATIVE)
[2017-04-28 13:12] LABS: HEPATITIS A IGM NEGATIVE (NEGATIVE); HEPATITIS B CORE AB Negative (NEGATIVE)
[2017-04-28 13:25] LABS: FOLATE > 20.0 ng/mL
--- NOTE | 2017-04-28 13:48 | US ---
PROCEDURE: Bilateral carotid artery duplex ultrasound HISTORY: Carotid stenosis syncope PHYSICIAN(S): Jean Claude Yan MD. TECHNIQUE: Duplex sonography and color-flow Doppler were used to evaluate the carotid bifurcations and limited segments of the vertebral arteries bilaterally. FINDINGS: There is mild smooth hypoechoic plaque noted at the carotid bifurcations bilaterally. The peak systolic velocity in the proximal right internal carotid artery is 54 cm/sec. This corresponds to a 20 to 39% proximal right ICA stenosis. Normal systolic velocities are noted in the proximal right external carotid artery. There is antegrade flow in the right vertebral artery. The peak systolic velocity in the proximal left internal carotid artery is 90 cm/sec. This corresponds to a 20 to 39% proximal left ICA stenosis. Normal systolic velocities are noted in the proximal left external carotid artery. There is antegrade flow in the left vertebral artery. IMPRESSION: 1. Bilateral 20-39% proximal ICA stenoses. 2. Antegrade flow in both vertebral arteries.
--- NOTE | 2017-04-28 14:31 | MRI ---
PROCEDURE: MRI BRAIN WITH AND WITHOUT CONTRAST HISTORY: SYNCOPE COMPARISON: None. TECHNIQUE: Multiplanar, multisequence MR images of the brain were obtained with and without intravenous contrast enhancement. 15 cc of Omniscan FINDINGS: HEMORRHAGE: None DWI: No evidence of an acute or early subacute infarction. BRAIN PARENCHYMA: No mass,mass effect or edema. No atrophy or chronic microvascular ischemic changes. ENHANCEMENT: No abnormal intracranial enhancement. VENTRICLES: Unremarkable. No hydrocephalus. CRANIUM: Unremarkable. ORBITS: Grossly unremarkable. PARANASAL SINUSES/MASTOIDS: Clear VASCULAR SYSTEM: Skull base flow voids intact. OTHER FINDINGS: None . IMPRESSION: Unremarkable pre and post contrast enhanced MRI of the brain.
--- NOTE | 2017-04-28 14:34 | MRI ---
PROCEDURE: Magnetic Resonance Angiography Brain HISTORY: SYNCOPE COMPARISON: None available. TECHNIQUE: 3D time of flight MR angiography of the intracranial arteries was performed. Rotating maximum intensity projection images were generated. FINDINGS: INTERNAL CAROTID ARTERIES: Unremarkable. The skull base, petrous, cavernous and supraclinoid segments are bilaterally widely patient. ANTERIOR CEREBRAL ARTERIES: Unremarkable. A1 and A2 segments are widely patent. Smaller distal branches unremarkable, as visualized. MIDDLE CEREBRAL ARTERIES: Unremarkable. M1 and M2 segments are widely patent. Perisylvian branches grossly symmetric. POSTERIOR CIRCULATION: Basilar Artery: Unremarkable. Distal Vertebral Arteries: Unremarkable. Posterior Cerebral Arteries: Unremarkable. Posterior Inferior Cerebellar Arteries: Unremarkable. ANEURYSM/ VASCULAR MALFORMATIONS: None. OTHER FINDINGS: None. IMPRESSION: Unremarkable MR angiography of the brain.
--- NOTE | 2017-04-28 14:39 | MRI ---
PROCEDURE: MR LUMBAR SPINE WITH AND WITHOUT CONTRAST HISTORY: FRACTURE COMPARISON: None available. TECHNIQUE: Multiecho multiplanar sequences were performed through the lumbar spine with and without the use of intravenous contrast. FINDINGS: Normal lumbar lordosis. Mild compression fractures with marrow edema can be seen at T12, L3 and the superior endplate of L2. Findings are consistent with acute or subacute compression fractures. Conus medullaris unremarkable at the level of Paraspinal soft tissues are unremarkable. No abnormal enhancement. T12-L1: No disc herniation, spinal canal stenosis or neural foraminal narrowing. L1-2: No disc herniation, spinal canal stenosis or neural foraminal narrowing. L2-3: No disc herniation, spinal canal stenosis or neural foraminal narrowing. L3-4: No disc herniation, spinal canal stenosis or neural foraminal narrowing. L4-5: There is a small broad-based central disc protrusion at L4-5 without stenosis L5-S1: No disc herniation, spinal canal stenosis or neural foraminal narrowing. OTHER FINDINGS: None. IMPRESSION: Mild acute or subacute compression fractures of T12, L2 and L3.
[2017-04-28 14:47] LABS: HEPATITIS C ANTIBODY REACTIVE (NEGATIVE)
[2017-04-28] MEDS ORDERED: HYDROmorphone 2 mg/ml ISec IVP STA (17:16)
[2017-04-28 20:43] VITALS: BMI 31.4
[2017-04-28] MEDS ORDERED: Influenza Vaccine 60 mcg/0.5 mL SYR (4YR UP) IM ONE (20:43)
[2017-04-28] MEDS ORDERED: Pneumococcal 23-Valent Vaccine IM ONE (20:43)
--- NOTE | 2017-04-29 00:15 | CON ---
DATE: 04/28/2017 The patient is in the emergency room. CHIEF COMPLAINT: Back pain times several days. HISTORY OF PRESENT ILLNESS: This is a 41-year-old male with history of chronic back pain, history of intravenous drug abuse. He states he used just a few weeks ago, he is not quite sure, may be earlier, may be later. He is not sure exactly when his last drug use was intravenously. He also has alcohol abuse. He has hepatitis B and hepatitis C, bipolar and depression, and I believe he had a seizure, and he woke up with severe back pain that is worse than usual. He denies any fevers or chills. He continues to drink. No chest pain, shortness of breath, or cough. No abdominal pain, diarrhea, or constipation. No headaches, blurred vision. PAST MEDICAL HISTORY: Significant for hepatitis C, active intravenous drug abuse, alcohol abuse, bipolar, depression, chronic back pain, hypertension, anxiety, and hepatitis B. PAST SURGICAL HISTORY: Significant for right shoulder repair, right leg necrotizing fasciitis, history of cholecystectomy. ALLERGIES: THE PATIENT HAS NO KNOWN ALLERGIES. MEDICATIONS: At home, include trazodone, oxycodone, Ativan, lithium, Neurontin, Celexa. PHYSICAL EXAMINATION: GENERAL: On exam, he is in bed and complaining of back pain. VITAL SIGNS: Temperature of 97; ; respiratory rate of 18, it was up to 30 on admission; heart rate of 78, it was up to 106 and up to 145 on admission. Examination of the blood pressure is 140/78. HEENT: Examination of HEENT is unremarkable. NECK: Supple. LUNGS: Have decreased breath sounds. HEART: Normal S1, S2. ABDOMEN: Soft, nontender. BACK: Examination of back, there is no point tenderness. LABORATORY EXAMINATION: Reveals a white count of 14,100, hemoglobin of 18.7, hematocrit is 56, platelets of 229, 49% granulocytosis. Coagulation is noted. Chemistries reveals the patient has a BUN of 12, creatinine of 0.8. Random glucose is elevated. LFTs are elevated, alk phos is elevated, LDH is high. Urinalysis is noted, unremarkable. On toxicology, opiates are positive, and influenza is negative. Microbiology is pending. The patient had a CT angio. No evidence of aortic aneurysm or dissection. Fractures of L1, L2, and L3 vertebral bodies with retropulsed fragments. The patient had a chest x-ray which is reported to be negative. The patient also had a CAT scan of the head, brain mild atrophy. No definite acute findings. Dr. Kaleb Hilliard's note is reviewed. The patient had an echo that was read by Dr. Johny Parry with a dilated right atrium and borderline left atrial enlargement, normal left ventricular size and systolic dysfunction of borderline concentric left ventricular hypertrophy, mild tricuspid regurgitation. ASSESSMENT AND PLAN: This is a 41-year-old male with chronic back pain, history of intravenous drug abuse, actively still using intravenous drug abuse and on and off, last was a few weeks ago, alcoholism, hepatitis B, hepatitis C, bipolar, depression, hypertension, anxiety and now presenting with a back pain, tachycardia, leukocytosis, dyspnea, back pain is worse than usual. Systemic inflammatory response syndrome, must rule out discitis versus vertebral osteomyelitis with fracture of L1 and L3. The patient is scheduled for a CAT scan and/or MRI of the spine. I asked Dr. Jean Claude Yan to review the CAT scan to see if there is any need for aspiration of the disc and/or vertebral body and blood cultures have been ordered, urine cultures have been ordered. Hepatitis profile, HIV has been ordered. We will order a sed rate and C-reactive protein and Dr. Barreto has ordered RRP, blood cultures, and we will hold off on antibiotic therapy at this time since the patient has no fevers, no chills. Pending Dr. Jean Claude Yan's input and the MRI results, the patient is scheduled for MRI of the spine today, and he will review the MRI of the spine and MRI of the head as needed for a CT aspiration cultures and Gram stain, and we will start the antibiotics immediately after the procedure if it is indicated. We will follow closely with you. We will hold off on antibiotics at this time. We will discontinue the doxycycline and ceftriaxone. We will order a hepatitis C, RNA level and a hepatitis B virus, DNA, PCR. We will start antibiotics after the biopsy if MRI findings are positive. John Schmid MD
--- NOTE | 2017-04-29 01:56 | CON ---
DATE: 04/28/2017 REQUESTING PHYSICIAN: Wilber Barreto MD REASON FOR CONSULTATION: I have been asked to see this 41-year-old male who is admitted to the hospital with seizure disorder for elevated liver enzymes. The patient has a history of alcohol abuse, drinking up to pint of vodka daily. He states that he has not had a drink in several days. He developed a generalized seizure today and was brought to the Emergency Room by family. He is complaining of right-sided back pain. MRI of the back reveals a compression fracture of T12, L2 and L3. He denies any trauma to the back. He currently denies any abdominal pain, nausea or vomiting. The patient also has a history of hepatitis C previously not treated, bipolar disorder, depression, he snorted heroin with approximately 2 weeks ago as well as cocaine 2 weeks ago. The patient apparently has had seizures in the past. PAST MEDICAL HISTORY: Notable for multi substance abuse, hepatitis C, bipolar disorder. PAST SURGICAL HISTORY: Notable for left shoulder repair, surgery for necrotizing fasciitis of his right leg. SOCIAL HISTORY: He snorts cocaine and heroin. Last episode was 2 weeks ago. The patient consumes vodka up to a pint a day. He denies cigarette smoking. FAMILY HISTORY: Noncontributory. REVIEW OF SYSTEMS: A 14-point review of systems is notable for seizure disorder and right-sided back pain. MEDICATIONS: At home include; trazodone, OxyContin, Ativan, lithium, Neurontin and Celexa. PHYSICAL EXAMINATION GENERAL: Well-developed male lying in bed in no acute distress. He is awake and alert. VITAL SIGNS: Reveal temperature of 97.8, blood pressure 109/72 and heart rate of 89. HEENT: Reveal sclerae to be white. Conjunctivae pink. NECK: Supple. CHEST: Lungs clear. HEART: Exam reveals regular rate and rhythm. ABDOMEN: Soft and nontender. EXTREMITIES: Show no edema. He does have some tremors of his upper extremities. LABORATORY DATA: Reveal white blood cell count 8.8, hemoglobin 16.8 and platelet count of 170,000. Chemistries reveal total bilirubin 1.6, direct bilirubin 0.7, AST 273 and ALT 572. Hepatitis A and B serologies are negative. His hepatitis C antibody is positive. Ultrasound of the abdomen shows hepatomegaly with fatty liver. IMPRESSION: Elevated liver enzymes with hepatomegaly and fatty liver seen on ultrasound as well as hepatitis C antibody positivity. He has had recent drug use, snorting heroin and cocaine. He is admitted with seizure disorder. He is an alcoholic. Elevated liver enzymes are multifactorial including alcohol use and drug use. RECOMMENDATIONS 1. Observe closely for DTs. 2. Give thiamine 100 mg IM one dose. 3. Check HIV status as well as hepatitis C RNA quantitative. Thank you for this consult Hayden Tam MD
[2017-04-29] MEDS: Pantoprazole 40 mg EC Tab PO SCH ×2 (06:13→15:26)
[2017-04-29 07:24] LABS: BASO # 0.02 K/mm3 (0.0-2.0); BASO % 0.3 % (0.0-3.0); EOS # 0.2 (0.0-0.7); EOS % 2.5 % (1.5-5.0); GRAN # 4.33 (1.4-6.5); GRAN % 60.7 % (50.0-68.0); HEMOGLOBIN 15.5 g/dL (14.0-18.0); LYMPH # 1.8 (1.2-3.4); LYMPH % 25.4 % (22.0-35.0); MEAN CELL VOLUME 95.9 fl (80.0-105.0); MEAN CORPUSCULAR HEMOGLOBIN 32.1 pg (25.0-35.0); MEAN CORPUSCULAR HGB CONC 33.5 g/dl (31.0-37.0); MEAN PLATELET VOLUME 10.1 fl (7.0-11.0); MONO # 0.8 (0.1-0.6); MONO % 11.1 % (1.0-6.0); RBC 4.83 10^6/uL (3.5-6.1); RED CELL DISTRIBUTION WIDTH 15.4 % (11.5-14.5); WHITE BLOOD COUNT 7.1 10^3/ul (4.5-11.0)
[2017-04-29 08:03] LABS: ALB/GLOB RATIO 1.1 (1.1-1.8); ALBUMIN 4.4 g/dL (3.0-4.8); ALT/SGPT 490 U/L (7-56); AST/SGOT 249 U/L (17-59); BILIRUBIN,DIRECT 0.7 mg/dL (0.0-0.4); BLOOD UREA NITROGEN 14 mg/dL (7-21); CALCIUM 9.5 mg/dL (8.4-10.5); GFR AFRICAN-AMERICAN > 60; GFR NON-AFRICAN AMERICAN > 60; MAGNESIUM 2.1 mg/dL (1.7-2.2)
--- NOTE | 2017-04-29 08:39 | PN ---
DATE: 04/28/2017 SUBJECTIVE: Patient is seen in the Emergency Room and the ultrasound area. Patient is seen lying in the bed. Patient was observed for few minutes standing away from the stretcher. Patient was lying on the stretcher comfortably without any distress, but as soon as I approached the stretcher, stood next to the patient's stretcher, patient started complaining right away of the back pain and requesting narcotic pain medications. Overnight nurse's notes were reviewed. REVIEW OF SYSTEMS: Patient's 13 system review was positive for back pain requesting Dilaudid and morphine. PHYSICAL EXAMINATION: VITAL SIGNS: T-max 98.1. Telemetry shows sinus rhythm. Blood pressure 117/79, 129/64, 148/88,133/88, 140/90, 104/68, 109/72, 130/91, respiration 16 to 20, O2 sat 99% on room air. GENERAL: Patient is seen lying in the bed stretcher. HEAD: Normocephalic, atraumatic. HEENT: Shows pink conjunctivae. Dry oral mucosa. No neck rigidity. No audible carotid bruit. No jugular venous tension. CHEST: Kyphosis. LUNGS: Examination shows occasional rhonchi. No rales, crackles or wheezing. CARDIOVASCULAR: S1, S2, regular rhythm. No appreciable murmur, gallop or rub. Positive surgical scar of the right shoulder. ABDOMEN: Slightly protuberant. Positive bowel sound. No hepatosplenomegaly noted. No guarding. No rigidity, rebound tenderness. No costovertebral angle tenderness. GENITALIA: Male. RECTAL: Deferred. EXTREMITIES: Lower extremity examination shows positive left leg surgical scar of left leg surgery. MUSCULOSKELETAL: Examination shows a body mass index of 31.4. Motor strength is 5/5. Plantar's are downgoing. DTRs at 2+. NEUROLOGIC: The patient is alert, awake, responsive. He is able to move upper and lower extremity without assistance. Motor strength is 5/5 in upper and lower extremity. Gait examination is not tested. SPINAL: Shows questionable lumbar spine tenderness. No CVA tenderness. Motor strength is 5/5, lower extremity.. Positive tremulousness noted. Sensory examination is within normal limit. Coordination is intact. Gait examination is not tested. DIAGNOSTICS: On 04/28/2017, WBC 8.8, hemoglobin/hematocrit 16.8/49.1, platelets 170, granulocytes 68, VBG repeat shows a lactic acid of 0.9. Sodium 139, potassium 4.2, chloride 104, CO2 of 23, anion gap of 16, BUN 12, creatinine 0.8, GFR greater than 60, glucose 113, hemoglobin A1c 4.9, calcium 9.7, magnesium 2.2, ferritin 716, total bilirubin 1.6, direct bilirubin 0.7, AST 273, ALT 572, ammonia is 14, triglyceride 107, cholesterol 182, LDL 133, HDL 33. Vitamin B12 is 526, folate greater than 20, TSH 1.39, thyroxin 11.8 which is slightly elevated. Yesterday, cholesterol was 235, triglyceride 147, LDL 160. RPR is nonreactive. Hepatitis C antibody is reactive. Blood cultures, no growth. MRA of the brain, MRI of the lumbar spine, abdominal ultrasound, carotid ultrasound noted and explained to the patient. Echocardiogram results reviewed. Patient seen by neurology. Recommendations noted and reinforced to the patient. Repeat EKG was reviewed. Echo with Doppler results were reviewed. Patient is seen by Dr. Crockett and their recommendations noted. IMPRESSION AND PLAN 1. Witnessed syncope and possible seizure with mouth foaming. 2. T12, L2-L3 compression fracture with marrow edema. 3. Acute or subacute compression fracture of T12, L3. 4. L4-L5 small broad-based central disc protrusion. 5. Mild acute to subacute compression fracture of T12, L2 and L3. 6. Questionable alcohol related seizure versus alcohol withdrawal seizure. 7. Delirium tremens. 8. History of narcotic and opiate dependence. 9. Bilateral 20% to 39% proximal internal carotid artery stenosis. 10. Hepatomegaly with fatty infiltration of the liver. 11. Cholecystectomy. 12. Hepatosplenomegaly. 13. Left ventricular ejection fraction of 58% with concentric left ventricular hypertrophy. 14. Mildly dilated left and right atrium. 15. Mild tricuspid regurgitation. 16. Sinus tachycardia. 17. Status post uncontrolled hypertension. 18. Leukocytosis. 19. Granulocytosis. 20. Erythrocytosis (resolved). 21. Transient lactic acidosis. 22, Hyperbilirubinemia with transaminitis. 23. Hepatitis C antibody reactive. 24. Hypercholesterolemia with elevated LDL. 25. Transient hypercalcemia. 26. Increased anion gap metabolic acidosis. 27. Transaminitis. 28. Microscopic hematuria. 29. Reactive hepatitis C antibody. 30. History of bipolar disorder, history of depression, history of suicide attempt, history of alcohol dependence, bipolar disorder. 31. History of untreated hepatitis C. 32. History of bipolar disorder. 33. History of left leg necrotizing fasciitis. 34. History of anxiety, bipolar disorder, depression, history of heroin abuse. 35. Anxiety. 36. Delirium tremens and alcohol withdrawal. 37. History of alcohol abuse and multi substance abuse. 38. History of cocaine, heroin abuse. 39. Alcohol related versus alcohol withdrawal witnessed seizure and multi substance abuse. 40. Transaminitis with hepatitis C. Hepatitis C antibody positive. PLAN: At this time, patient has been consulted with Dr. Jean Claude Yan for possible evaluation of kyphoplasty. Patient has been ordered repeat CMP, LFT, magnesium, HIV results are pending. Patient has been ordered hepatitis C, viral RNA, patient has been ordered ESR, patient has been ordered CBC, urine and blood cultures reports are pending. CURRENT CONSULTATIONS: 1. Gastroenterology. 2. Infectious Disease. 3. Neurology. 4. Cardiology. 5. Interventional radiology and Psychiatry. CURRENT MEDICATIONS: 1. Ativan 1 mg IV q. 4 hours p.r.n. 2. Banana bag. 3. Clonidine 0.1 mg q. 4 p.r.n. 4. Desyrel 50 mg bedtime p.r.n. 5. Folic acid 1 mg daily. 6. Haldol 2 mg IM q.8 hours. p.r.n. 7. Librium 50 mg p.o. q. 4 hours. p.r.n. 8. Librium protocol. 9. Lidoderm 5% patch to the affected area. 10. Lopressor 25 mg twice a day. 11. Lovenox 40 mg subcu daily. 12. Protonix 40 mg daily. 13. Multivitamin 1 tablet daily. 14. Toradol 30 mg IV q. 8 p.r.n. times 6 doses. 15. Patient is started on Zanaflex 2 mg t.i.d. p.r.n. 16. Zofran 4 mg IV q. 4 p.r.n. EEG is pending. Patient is started on heart healthy diet. Patient has been on seizure precautions. At present, the patient is awaiting further input from all the physicians involved in the care of the patient. Patient has been advised and updated about his condition, diagnosis, and test results. Wilber MD [facility] # [id number]
[2017-04-29] MEDS: Multivitamin With Minerals Tab PO SCH (08:59)
[2017-04-29] MEDS: Lidocaine 5% Patch TD SCH (09:00)
[2017-04-29] MEDS: Enoxaparin 40 mg Syringe SC SCH (09:00)
--- NOTE | 2017-04-29 11:54 | CARD ---
APPROVED REPORT EKG Measurement Heart [id number] <Conclusion> Normal sinus rhythm LVH by voltage, could be normal variant
--- NOTE | 2017-04-29 13:00 | CP.PCM.PN ---
<Caty Padilla - Last Filed: 04/29/17 13:38> Subjective - Date & Time of Evaluation Date of Evaluation: 04/29/17 Time of Evaluation: 09:00 - Subjective Subjective: Neurology PGY-[address] Crockett No other acute complaint except back pain. No radiation pain. No parasthesia, or B/B incontinent Objective - Vital Signs/Intake and Output Vital Signs (last 24 hours): Temp Pulse Resp BP Pulse Ox 99.1 F 87 20 154/95 H 95 04/29/17 06:00 04/29/17 09:00 04/29/17 06:00 04/29/17 09:00 04/29/17 06:00 Intake and Output: 04/29/17 04/29/17 06:59 18:59 Intake Total 1000 Balance 1000 - Medications Medications: Current Medications Chlordiazepoxide (Librium) 25 mg PO TID [facility] PRN Reason: Taper Stop: 05/01/17 21:14 Last Admin: 04/29/17 09:00 Dose: 25 mg Chlordiazepoxide (Librium) 50 mg PO Q4H PRN PRN Reason: Symptoms of alcohol withdrawl Last Admin: 04/29/17 02:07 Dose: 50 mg Clonidine HCl (Catapres) 0.1 mg PO Q4H PRN PRN Reason: Symptoms of alcohol withdrawl Enoxaparin Sodium (Lovenox) 40 mg SC DAILY [facility] PRN Reason: Protocol Last Admin: 04/29/17 09:00 Dose: 40 mg Folic Acid (Folic Acid) 1 mg PO DAILY [facility] Last Admin: 04/29/17 09:00 Dose: 1 mg Haloperidol Lactate (Haldol) 2 mg IM Q8H PRN PRN Reason: Agitation Last Admin: 04/28/17 01:29 Dose: 2 mg Ketorolac Tromethamine (Toradol) 30 mg IVP Q8H PATTI Stop: 04/29/17 14:16 Last Admin: 04/29/17 08:57 Dose: 30 mg Lidocaine (Lidoderm) 1 ea TD DAILY [facility] Last Admin: 04/29/17 09:00 Dose: 1 ea Lorazepam (Ativan) 1 mg IVP Q4H PRN PRN Reason: Symptoms of alcohol withdrawl Last Admin: 04/29/17 11:21 Dose: 1 mg Metoprolol Tartrate (Lopressor) 25 mg PO BID [facility] Last Admin: 04/29/17 09:00 Dose: 25 mg Multivitamins/Minerals (Therapeutic-M Tab) 1 tab PO DAILY [facility] Last Admin: 04/29/17 08:59 Dose: 1 tab Ondansetron HCl (Zofran Inj) 4 mg IVP Q4H PRN PRN Reason: Nausea/Vomiting Pantoprazole Sodium (Protonix Ec Tab) 40 mg PO 0600,1600 [facility] Last Admin: 04/29/17 06:13 Dose: 40 mg Thiamine HCl (Vitamin B1 Inj) 100 mg IM DAILY [facility] Tizanidine HCl (Zanaflex) 2 mg PO TID PRN PRN Reason: Pain, moderate (4-7) Last Admin: 04/28/17 15:35 Dose: 2 mg Trazodone HCl (Desyrel) 50 mg PO HS PRN PRN Reason: Insomnia Last Admin: 04/29/17 01:49 Dose: 50 mg - Labs Labs: 04/29/17 06:30 04/29/17 06:30 PT 12.8 SECONDS (9.4-12.5) H 04/27/17 16:35 INR 1.12 (0.93-1.08) H 04/27/17 16:35 APTT 43.6 Seconds (25.1-36.5) H 04/27/17 16:35 - Constitutional Appears: No Acute Distress - Head Exam Head Exam: ATRAUMATIC, NORMAL INSPECTION, NORMOCEPHALIC - Eye Exam Eye Exam: EOMI, Normal appearance, PERRL Pupil Exam: NORMAL ACCOMODATION, PERRL - ENT Exam ENT Exam: Mucous Membranes Moist, Normal Exam - Neck Exam Additional comments: supple - Respiratory Exam Respiratory Exam: Clear to Ausculation Bilateral, NORMAL BREATHING PATTERN - Cardiovascular Exam Cardiovascular Exam: REGULAR RHYTHM, +S1, +S2. absent: Murmur - GI/Abdominal Exam GI & Abdominal Exam: Soft, Normal Bowel Sounds. absent: Tenderness - Extremities Exam Extremities Exam: Full ROM, Normal Capillary Refill, Normal Inspection. absent : Joint Swelling, Pedal Edema Additional comments: no saddle parasthesia - Neurological Exam Neurological Exam: Alert, Awake, CN II-XII Intact, Oriented x3 Additional comments: Speech - fluent Motor - 5/5 all extremities. Cannot bear wt due to back pain. Slight tremors on UE Sensory - intact DTR - 2/4 Rapid alternating movement - intact - Psychiatric Exam Psychiatric exam: Anxious - Skin Skin Exam: Dry, Warm Assessment and Plan - Assessment and Plan (Free Text) Plan: Consult: Seizure and back pain Mr Swann, 41 M, with PMH of alcohol abuse, mult-substance abuse, Hepatitis C- never treated, Bipolar disorder, and depression, presented with witnessed seizure. Last drink 5 days ago, used to be on 1/2 bottle vodka a day. Last heroine, snort, 2 weeks ago. Last cocaine, snort, 2 weeks ago. He also took suboxone the day of admission. Pt was found to have compression fracture T12, L2 , L3, likely from seizure Witnessed seizure, likely provoked due to alcohol withdrawal Vs. Convulsive syncope due to alcohol withdrawal Multisubstance abuse - CK normal at 159, LDH >1000 likely from ETOH, Elevated Lactated resolved - Head CT negative for acute findings but (+) mild atropy and right frontal sinus retention cyst. - Head MRA - unremarkable - Brain MRI - unremarkable - No AEDs; EEG normal - Avoid sedative as it lowers seizure threshold - Continue neural check q4 and seizure precaution - CIWA protocol per primary team - Thiamine 100 mg daily - Pending IR evaluate re: kyphoplasty - Recommend professional counsuling for ETOH and multi-substance abuse compression fracture T12, L2, L3 Intractable back pain - Lumbar MRI - mild acute or subacute compression fracture of T12, L2, L3- Lumbar MRI - mild acute or subacute compression fracture of T12, L2, L3 - CTA showed fractures of L1 and L3 fractures vertebral bodies with retropulsed fragment. L1 was seen in 2012. No acute fracture. - Toradol 30 q8 patti and lidoderm patch daily - Tizanidine 2 TID PRN back pain - Physical therapy - recommend subacute rehab Transaminitis - managed per primary - Caution on Librium Pt is neurological stable. Please re-consult on new symptoms s/d/r/w Dr. Crockett <Elmer Crockett - Last Filed: 04/30/17 10:00> Objective - Vital Signs/Intake and Output Vital Signs (last 24 hours): Temp Pulse Resp BP Pulse Ox 98.6 F 76 20 122/78 94 L 04/30/17 06:00 04/30/17 09:33 04/30/17 06:00 04/30/17 09:33 04/30/17 06:00 Intake and Output: 04/30/17 04/30/17 06:59 18:59 Intake Total 960 Balance 960 - Medications Medications: Current Medications Chlordiazepoxide (Librium) 25 mg PO BID [facility] PRN Reason: Taper Stop: 05/01/17 21:14 Last Admin: 04/30/17 09:32 Dose: 25 mg Chlordiazepoxide (Librium) 50 mg PO Q4H PRN PRN Reason: Symptoms of alcohol withdrawl Last Admin: 04/29/17 02:07 Dose: 50 mg Clonidine HCl (Catapres) 0.1 mg PO Q4H PRN PRN Reason: Symptoms of alcohol withdrawl Enoxaparin Sodium (Lovenox) 40 mg SC DAILY [facility] PRN Reason: Protocol Last Admin: 04/30/17 09:40 Dose: 40 mg Folic Acid (Folic Acid) 1 mg PO DAILY [facility] Last Admin: 04/30/17 09:33 Dose: 1 mg Haloperidol Lactate (Haldol) 2 mg IM Q8H PRN PRN Reason: Agitation Last Admin: 04/28/17 01:29 Dose: 2 mg Lidocaine (Lidoderm) 1 ea TD DAILY [facility] Last Admin: 04/30/17 09:34 Dose: 1 ea Lorazepam (Ativan) 1 mg IVP Q4H PRN PRN Reason: Symptoms of alcohol withdrawl Last Admin: 04/30/17 09:33 Dose: 1 mg Metoprolol Tartrate (Lopressor) 25 mg PO BID [facility] Last Admin: 04/30/17 09:33 Dose: 25 mg Multivitamins/Minerals (Therapeutic-M Tab) 1 tab PO DAILY [facility] Last Admin: 04/30/17 09:33 Dose: 1 tab Ondansetron HCl (Zofran Inj) 4 mg IVP Q4H PRN PRN Reason: Nausea/Vomiting Pantoprazole Sodium (Protonix Ec Tab) 40 mg PO 0600,1600 [facility] Last Admin: 04/30/17 05:41 Dose: 40 mg Thiamine HCl (Vitamin B1 Inj) 100 mg IM DAILY [facility] Last Admin: 04/30/17 09:32 Dose: 100 mg Tizanidine HCl (Zanaflex) 2 mg PO TID PRN PRN Reason: Pain, moderate (4-7) Last Admin: 04/30/17 09:33 Dose: 2 mg Trazodone HCl (Desyrel) 50 mg PO HS PRN PRN Reason: Insomnia Last Admin: 04/30/17 03:38 Dose: 50 mg - Labs Labs: 04/30/17 07:00 04/30/17 07:00 PT 12.8 SECONDS (9.4-12.5) H 04/27/17 16:35 INR 1.12 (0.93-1.08) H 04/27/17 16:35 APTT 43.6 Seconds (25.1-36.5) H 04/27/17 16:35 Attending/Attestation - Attestation I have personally seen and examined this patient.: Yes I have fully participated in the care of the patient.: Yes I have reviewed all pertinent clinical information, including history, physical exam and plan: Yes
--- NOTE | 2017-04-29 13:36 | PN ---
DATE: 04/29/2017 SUBJECTIVE: The patient is lying in bed comfortable. He complains of low back pain. MEDICATIONS: His medications currently include Atacand 1 mg IV q. 4 hours., as needed for agitation, Catapres 0.1 mg p.o. q. 4 hours. p.r.n. agitation, trazodone 50 mg bedtime as needed, folic acid 1 mg daily, Haldol 25 mg IM every 8 hours as needed for agitation, Librium 50 mg p.o. q. 4 hours. as needed for agitation, Lidoderm patch to the back, Lopressor 25 mg p.o. b.i.d., Lovenox 40 mg once a day, Protonix 40 mg b.i.d., multivitamins, Toradol 30 mg IV q. 8 hours. as needed and Zanaflex 2 mg p.o. three times a day as needed. PHYSICAL EXAMINATION: VITAL SIGNS: Reveal temperature of 99.1, blood pressure of 154/95, and heart rate of 87. HEENT: Revealed sclerae to be white. Conjunctivae are pink. NECK: Supple. CHEST: Revealed lungs to be clear. HEART: Exam reveals a regular rate and rhythm. GASTROINTESTINAL: Abdomen is soft and nontender. EXTREMITIES: Show no edema. LABORATORY DATA: Revealed hemoglobin of 15.5, white blood cell count of 7.1, and platelet count of 157,000. Chemistries reveal total bilirubin of 1.1, AST of 249 which is trending downward as his ALT of 490, and alkaline phosphatase of 68. IMPRESSION: 1. Seizure disorder. 2. Low back pain secondary to compression fractures. 3. Elevated liver enzymes on this patient with polysubstance abuse with known hepatitis C antibody positivity as well as chronic alcohol use. The patient was found to have fatty liver and hepatomegaly on ultrasound. RECOMMENDATIONS: 1. Continue current treatment. 2. Await hepatitis C RNA quantitative. 3. Abstinence from alcohol. 4. Continue to observe closely for delirium tremens. Hayden Tam MD
--- NOTE | 2017-04-29 15:18 | CP.PCM.PN ---
Subjective - Date & Time of Evaluation Date of Evaluation: 04/29/17 Time of Evaluation: 14:38 - Subjective Subjective: MEDICINE PROGRESS NOTE: Patient seen and assessed at bedside. No acute events overnight reported by nursing staff or patient. Patient continues to endorse low back pain but reports moderate relief with pain medication. He denies fever, chills, headache , changes in his vision, chest pain, palpitations, SOB, cough, wheezing, abdominal pain, N/V, diarrhea, burning/pain with urination, skin changes, saddle parathesias or any loss of control of bowel/bladder function. Objective - Vital Signs/Intake and Output Vital Signs (last 24 hours): Temp Pulse Resp BP Pulse Ox 99.1 F 87 20 154/95 H 95 04/29/17 06:00 04/29/17 09:00 04/29/17 06:00 04/29/17 09:00 04/29/17 06:00 Intake and Output: 04/29/17 04/29/17 06:59 18:59 Intake Total 1000 Balance 1000 - Medications Medications: Current Medications Chlordiazepoxide (Librium) 25 mg PO TID [facility] PRN Reason: Taper Stop: 05/01/17 21:14 Last Admin: 04/29/17 09:00 Dose: 25 mg Chlordiazepoxide (Librium) 50 mg PO Q4H PRN PRN Reason: Symptoms of alcohol withdrawl Last Admin: 04/29/17 02:07 Dose: 50 mg Clonidine HCl (Catapres) 0.1 mg PO Q4H PRN PRN Reason: Symptoms of alcohol withdrawl Enoxaparin Sodium (Lovenox) 40 mg SC DAILY [facility] PRN Reason: Protocol Last Admin: 04/29/17 09:00 Dose: 40 mg Folic Acid (Folic Acid) 1 mg PO DAILY [facility] Last Admin: 04/29/17 09:00 Dose: 1 mg Haloperidol Lactate (Haldol) 2 mg IM Q8H PRN PRN Reason: Agitation Last Admin: 04/28/17 01:29 Dose: 2 mg Lidocaine (Lidoderm) 1 ea TD DAILY [facility] Last Admin: 04/29/17 09:00 Dose: 1 ea Lorazepam (Ativan) 1 mg IVP Q4H PRN PRN Reason: Symptoms of alcohol withdrawl Last Admin: 04/29/17 11:21 Dose: 1 mg Metoprolol Tartrate (Lopressor) 25 mg PO BID [facility] Last Admin: 04/29/17 09:00 Dose: 25 mg Multivitamins/Minerals (Therapeutic-M Tab) 1 tab PO DAILY [facility] Last Admin: 04/29/17 08:59 Dose: 1 tab Ondansetron HCl (Zofran Inj) 4 mg IVP Q4H PRN PRN Reason: Nausea/Vomiting Pantoprazole Sodium (Protonix Ec Tab) 40 mg PO 0600,1600 [facility] Last Admin: 04/29/17 06:13 Dose: 40 mg Thiamine HCl (Vitamin B1 Inj) 100 mg IM DAILY [facility] Tizanidine HCl (Zanaflex) 2 mg PO TID PRN PRN Reason: Pain, moderate (4-7) Last Admin: 04/28/17 15:35 Dose: 2 mg Trazodone HCl (Desyrel) 50 mg PO HS PRN PRN Reason: Insomnia Last Admin: 04/29/17 01:49 Dose: 50 mg - Labs Labs: 04/29/17 06:30 04/29/17 06:30 PT 12.8 SECONDS (9.4-12.5) H 04/27/17 16:35 INR 1.12 (0.93-1.08) H 04/27/17 16:35 APTT 43.6 Seconds (25.1-36.5) H 04/27/17 16:35 - Constitutional Appears: Non-toxic, No Acute Distress - Head Exam Head Exam: ATRAUMATIC, NORMAL INSPECTION, NORMOCEPHALIC - Eye Exam Eye Exam: EOMI, Normal appearance, PERRL. absent: Conjunctival injection, Nystagmus, Periorbital swelling, Periorbital tenderness, Scleral icterus Pupil Exam: NORMAL ACCOMODATION, PERRL - ENT Exam ENT Exam: Mucous Membranes Moist, Normal Exam - Neck Exam Neck Exam: Full ROM, Normal Inspection. absent: Meningismus - Respiratory Exam Respiratory Exam: Clear to Ausculation Bilateral, NORMAL BREATHING PATTERN. absent: Accessory Muscle Use, Chest Wall Tenderness, Decreased Breath Sounds, Prolonged Expiratory Phase, Rales, Rhonchi, Wheezes, Respiratory Distress, Stridor - Cardiovascular Exam Cardiovascular Exam: REGULAR RHYTHM, RRR, +S1, +S2. absent: Bradycardia, Tachycardia, Clicks, Diastolic murmur, Gallop, Irregular Rhythm, JVD, Rubs, +S4 , Murmur - GI/Abdominal Exam GI & Abdominal Exam: Distended, Soft, Normal Bowel Sounds. absent: Bruit, Firm , Guarding, Rigid, Tenderness, Diminished Bowel Sounds, Hernia, Hyperactive Bowel Sounds, Hypoactive Bowel Sounds, Organomegaly, Pulsatile Mass, Rebound, Mass - Extremities Exam Extremities Exam: Full ROM, Normal Capillary Refill, Normal Inspection. absent : Calf Tenderness, Joint Swelling, Pedal Edema, Tenderness Additional comments: Noted erythematous rash on LLE - Back Exam Back Exam: tenderness, vertebral tenderness (T12-L5). absent: CVA tenderness (L ), CVA tenderness (R), Full ROM, muscle spasm, NORMAL INSPECTION, paraspinal tenderness, rash noted - Neurological Exam Neurological Exam: Alert, Awake, CN II-XII Intact, Oriented x3 - Psychiatric Exam Psychiatric exam: Normal Affect, Normal Mood - Skin Skin Exam: Dry, Intact, Normal Color, Warm Assessment and Plan - Assessment and Plan (Free Text) Assessment: This is a 41 yo male with a past medical history of alcohol abuse, Hepatitis C , Bipolar disorder, and depression who was admitted for seizures, likely secondary to alcohol withdrawal. He is also being worked up for possible spinal compression fracture. Plan: 1. Seizure/Syncope -CT Head, Brain MRI and MRA Head all unremarkable for acute pathology -Carotid duplex showing bilateral proximal ICA stenoses -Echo showing dilated RA, mild TR and normal size and function of the LV -EEG completed, official read pending -Seizure precautions -Neurology and Cardiology consulted, appreciate all recs 2. Acute on Chronic LBP with associate sciatica -MRI Lumbar Spine showing mild acute or subacute compression fractures of T12, L2 and L3 -Zanaflex PO and Lidocaine TD for pain control -Opioid pain medications are not to be used for pain control as they can lower seizure threshold, per Neurology -IR consulted for kyphoplasty evaluation, all recommendations appreciated -PT/OT Evaluation 3. Alcohol Abuse/Withdrawal -Patient reports daily alcohol consumption with his last drink approximately 96 hours ago -Libruim 25mg PO TID -Librium 50mg PO Q4H and Ativan 1mg IVP Q4H PRN -Zofran PRN for N/V -Daily Folic Acid, Thiamine and MV supplementation -CIWA Assessments Q4H -Seizure, Aspiration and Fall precautions in place 4. History of Hepatitis C with associated transaminitis -Abdominal ultrasound notable for hepatosplenomegaly, fatty infiltration of liver -Trending LFT's with daily CMP's -Hepatitis Panel showing antibodies to Hepatitis C -GI and ID consulted, appreciate all recommendations 5. History of HTN -Continue Metoprolol and Clonidine 6. History of Bipolar disorder -Continue Haldol -Psych consulted, all recommendations appreciated 7. History of Insomnia -Continue home Trazadone GI Prophylaxis: Protonix DVT Prophylaxis: Lovenox and SCD's Patient seen and case discussed with attending, Dr. Barreto.
[2017-04-29] MEDS: Thiamine 100 mg/ml Inj IM SCH (15:25)
--- NOTE | 2017-04-29 22:32 | PN ---
DATE: 04/29/2017 SUBJECTIVE: The patient is in bed, in no acute distress, nontoxic. PHYSICAL EXAMINATION: VITAL SIGNS: Temperature is 99, blood pressure is 140/80, respiratory rate of 20, heart rate of 93 and pulse ox is 94%. HEENT: Unremarkable. NECK: Supple. LUNGS: Have decreased breath sounds. HEART: Normal S1 and S2. ABDOMEN: Soft. LABORATORY DATA: Reveals a white count of 7.1, hemoglobin of 15 and platelets of 157. BUN of 14 and creatinine of 0.8. LFTs are elevated. Urinalysis is noted. RPR is nonreactive. HIV is negative. Hepatitis profile is negative. The patient has hepatitis C. Influenza is negative. Microbiology reveals the blood pressure cultures have no growth. The patient had an MRI of the brain which was unremarkable. Dr. Eliel Lantigua's note is reviewed. Dr. Tam's note is reviewed. ASSESSMENT AND PLAN: This is a 41-year-old male with chronic back pain, history of intravenous drug abuse, he is still actively using with alcoholism, hepatitis B, hepatitis C, bipolar, depression, hypertension and anxiety, presenting with systemic inflammatory response syndrome with a fracture of L1 and L3. I discussed the case with Dr. Jean Claude Yan. We reviewed his MRI of the spine. He does not feel, it is infectious and CAT scan guided aspiration mild compression fracture. Currently, the patient is off of antibiotics. Cultures negative. No evidence of infection, with a sed rate of 5 and C-reactive protein of 5.9. We will check on the final culture results. John Schmid MD
--- NOTE | 2017-04-29 22:38 | CON ---
CARDIOLOGY CONSULTATION DATE: 04/29/2017 HISTORY OF PRESENT ILLNESS: The patient is a 41-year-old male with a history of alcohol abuse as well as substance abuse who presented with a seizure. PAST MEDICAL HISTORY: The patient's past medical history is free of cardiac disease. He is a chronic alcoholic as well as a drug user. He had a witnessed seizure, which would explain his syncopal episode. The patient denies chest pain, but complains of marked back pain, which was thought to be a fracture of his spinal processes. MEDICATIONS AT HOME: Include lithium for his bipolar disease and oxycodone. No dyspnea noted. SOCIAL HISTORY: The patient is a smoker. REVIEW OF SYSTEMS: Free of cardiac symptomatology. PHYSICAL EXAMINATION: VITAL SIGNS: Blood pressure varies from 139 to 154 systolic and heart rate in the 80s. NECK: Negative JVD. LUNGS: Without rales. HEART: S1 and S2. EXTREMITIES: Without edema. LABORATORY DATA: EKG is unremarkable. Laboratories reveal hemoglobin of 15.5. Chemistries, LFTs are elevated. Troponin is negative x1. IMPRESSION: 1. Seizures. 2. Syncope secondary to #1. 3. Alcoholic withdrawal. 4. History of multi-drug abuse. 5. Fracture of the spinal processes. 6. No evidence for acute cardiac disease. PLAN: Given these findings, his treatment needs to be directed guarding against alcoholic withdrawal symptoms. We will obtain an echo at some point once his back is improved and he is able to lie still. Jean Claude Sierra MD
--- NOTE | 2017-04-30 04:31 | PN ---
DATE: 04/29/2017 SUBJECTIVE: The patient is seen lying in room 374, bed 2. The patient is comfortable, in no distress. The patient is seen lying in the bed comfortable. The patient states that he has a lot of back pain, but the patient has been seen in the last two consecutive days being lying comfortable in the bed and the patient only complains of pain when the patient is being approached by the physician; otherwise, the patient is mostly seen lying in the bed. The patient is seen to be alert, awake, and responsive, does not appear to be in any distress. The patient's overnight nurse's notes were reviewed. The patient was comfortable in the bed. The patient required p.r.n. Ativan. The patient underwent EEG this morning. Overnight, the patient self-disconnected his IV fluid. OBJECTIVE: VITAL SIGNS: T-max 99.1, heart rates 82, 97, 93, 85, and 83, blood pressure is averaging 130s, 117, 103, 139, 154, 139, and 83 and diastolic 70s and 80s and 90s, respirations are 15-20, and O2 sat is averaging around mid-to-high 90%. HEENT: Head: Normocephalic, atraumatic. HEENT examination shows pink conjunctivae. Anicteric sclerae, dry oral mucosa. NECK: No neck rigidity. No audible carotid bruit. No visible jugular venous distention. CHEST: Symmetrical. LUNGS: Shows no rales, crackles or wheezing. Occasional rhonchi. CARDIOVASCULAR: Shows S1 and S2, regular rate and rhythm. ABDOMEN: Protuberant. Positive bowel sounds. No hepatosplenomegaly. No guarding. No rigidity. No rebound tenderness, no costovertebral angle tenderness. Positive spinal tenderness noted. GENITALIA: Male. RECTAL: Deferred. EXTREMITIES: Shows no pitting, no calf tenderness, no Homans' sign. MUSCULOSKELETAL: Shows body mass index of 32. NEUROLOGIC: The patient is alert, awake, and oriented x3. Motor strength is 5/5 in upper and lower extremities. Gait examination is independent. VASCULAR: Palpable pulses. PSYCHIATRIC: As per Psychiatry note. DIAGNOSTIC STUDIES: 04/29/2017, WBC 7.1, hemoglobin and hematocrit 15.5 and 46.3, and platelets 157. 04/29/2017, sodium 139, potassium 4.0, chloride 106, CO2 22, anion gap 16, BUN 14, creatinine 0.8, GFR greater than 60, glucose 101, calcium 9.5, magnesium 2.1, total bilirubin 1.9, direct bilirubin 0.7, AST 249, and ALT 490. HIV nonreactive. Blood cultures no growth. MRI of the lumbar spine was noted, which shows acute, subacute compression fracture of T12, L2,and L3. Echocardiogram was done. Echo with Doppler was noted. EKG was done. EKG from 04/29/2017 was reviewed and interpreted, which shows sinus rhythm, LVH by voltage criteria. IMPRESSION: 1. Possible witnessed syncope and seizure with mouth foaming. 2. T12, L2, and L3 acute versus subacute compression fracture with marrow edema. 3. Hypertension. 4. Sinus tachycardia. 5. Morbid obesity with elevated body mass index. 6. Poor compliance. 7. Leukocytosis. 8. Erythrocytosis. 9. Transient lactic acidosis. 10. Hyperbilirubinemia and transaminitis. 11. Elevated C-reactive protein of greater than 5. 12. Hypercholesteremia with elevated LDL. 13. Slightly elevated thyroxine level of 11.8. 14. Mild coagulopathy. 15. Microscopic hematuria. 16. Reactive hepatitis C antibody. 17. Bilateral internal carotid artery 20-39% stenosis. 18. Hypertensive cardiovascular disease. 19. Left ventricular ejection fraction of 58% with concentric left ventricular hypertrophy. 20. Borderline mildly dilated right and left atrium. 21. Mild tricuspid regurgitation. 22. Systemic inflammatory response syndrome. 23. Questionable withdrawal seizure. 24. Polysubstance abuse. 25. Possible alcohol withdrawal seizure versus alcohol related seizure. 26. Hepatic steatosis and hepatomegaly. PLAN: At this time, the patient has been ordered repeat labs. Hepatitis C and B PCR DNA RNA ordered. Repeat CBC ordered. Current consultation Gastroenterology, Infectious Disease, Neurology, Cardiology, Interventional Radiology, and Psychiatry. The patient is yet to be seen by Psychiatry. The patient is awaiting Interventional Radiology evaluation. CURRENT MEDICATIONS 1. Ativan 1 mg IV q.4 hours p.r.n. 2. Clonidine 0.1 mg p.o. q.4 hours p.r.n. 3. Desyrel 50 mg at bedtime p.r.n. 4. Folic acid 1 mg daily. 5. Haldol 2 mg IM q.8 hours p.r.n. 6. Librium 50 mg p.o. q.4 hours p.r.n. 7. Taper Librium 25 mg twice a day taper protocol. 8. Lidoderm 5% patch to the affected area. 9. Lopressor 25 mg twice a day. 10. Lovenox 40 mg subcu daily. 11. Protonix 40 mg twice a day. 12. Multivitamin 1 tablet daily. 13. Thiamine 100 mg IM daily. 14. Zanaflex 2 mg t.i.d. p.r.n. 15. Zofran 4 mg IV q.4 hours p.r.n. The patient is presently on alcohol withdrawal and CIWA The patient is awaiting on neuro checks and seizure precaution. The patient's case is referred for physical therapy, ambulation therapy, and gait training.. The patient has been updated about his condition, diagnosis, test results, and recommendation in detail at length and all questions concerned answered. The patient was counseled about cessation of smoking, alcohol, drug use, and polysubstance use, which he acknowledged the understanding. Wilber Barreto MD
[2017-04-30] MEDS: Pantoprazole 40 mg EC Tab PO SCH ×2 (05:41→16:08)
[2017-04-30 07:28] LABS: BASO # 0.03 K/mm3 (0.0-2.0); BASO % 0.5 % (0.0-3.0); EOS # 0.2 (0.0-0.7); EOS % 2.6 % (1.5-5.0); GRAN # 3.3 (1.4-6.5); GRAN % 50.1 % (50.0-68.0); HEMOGLOBIN 14.7 g/dL (14.0-18.0); LYMPH # 2.2 (1.2-3.4); LYMPH % 32.8 % (22.0-35.0); MEAN CELL VOLUME 97.2 fl (80.0-105.0); MEAN CORPUSCULAR HEMOGLOBIN 31.7 pg (25.0-35.0); MEAN CORPUSCULAR HGB CONC 32.7 g/dl (31.0-37.0); MONO # 0.9 (0.1-0.6); RBC 4.63 10^6/uL (3.5-6.1); RED CELL DISTRIBUTION WIDTH 15.3 % (11.5-14.5); WHITE BLOOD COUNT 6.6 10^3/ul (4.5-11.0)
[2017-04-30 08:42] LABS: ALB/GLOB RATIO 1.2 (1.1-1.8); ALBUMIN 4.3 g/dL (3.0-4.8); ALT/SGPT 529 U/L (7-56); AST/SGOT 294 U/L (17-59); BILIRUBIN,DIRECT 0.7 mg/dL (0.0-0.4); BLOOD UREA NITROGEN 14 mg/dL (7-21); CALCIUM 9.4 mg/dL (8.4-10.5); GFR AFRICAN-AMERICAN > 60; GFR NON-AFRICAN AMERICAN > 60; MAGNESIUM 2.3 mg/dL (1.7-2.2)
--- NOTE | 2017-04-30 09:10 | CON ---
DATE: 04/29/2017 PRESENTATION: The patient is a 41-year-old male seen at bedside. The patient was admitted to the hospital complaining of chest pain, shortness of breath, and back pain. Evidently, he was in the car with a friend and suddenly complained of shortness of breath, passed out, and started foaming from the mouth and having a seizure. He does have a history of seizures secondary to his alcohol abuse which is chronic. Consultation was called with concerns regarding his alcohol dependence. The patient indicates that he lives alone in apartment in a two family house. He is able to pay the bills, and he has been on disability for four years due to being diagnosed with bipolar illness. 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 The patient has been hospitalized in the past at [facility] under commitment status that was 6 to 7 years ago. He has been hospitalized here at [facility] which is a voluntary unit and at [facility]. He indicates his normal medications are lithium, Celexa, and Vistaril. He did not know the amounts and has been off of these medications for at least four weeks. He has had no followup. His current stressor is that his brother 3 months ago. His brother was living with him. He found him, it was a sudden , but his brother did use drugs and alcohol. He was a detox one month ago at [facility]. He has been at two times to detox and wants to straighten now, so he has been sober one time for 2 years, that was his longest period of sobriety, but he has really been having a hard time since his brother though he has no effect in speaking about this. He indicates his drug of choice is alcohol. When he drinks, he drinks daily. He has had seizures, he has had blackouts. He has had one DWI three years ago. He does not drive because he did not finish all the requirements necessary to get his licence back. The patient additionally has used heroin as well, the last time was four weeks ago. He also uses again the last time was one month ago. Medically, he indicates he has back problems due to his seizure, he has spasms, he complains off and on, worsened with back pain and seems very preoccupied with getting his pain medications. He indicates he has a history of hypertension as well. He has never been in the . He has only been listed one time for DWI. In terms of family history, his brother was also diagnosed as having bipolar illness and had substance and alcohol issues. The patient grew up in [place] [facility] [place] [facility]. His father left when he was young. He was just his one brother who just . They were raised by a single mom, his father was not involved with them nor that he paid any child support. The patient had a lot of difficulties, had special education services. 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 He did get . He and his broke up about 6 to 7 years ago. He has 3 adult children, Jarrett who is 19 and is still in high school; Gorge who is 22 and is working; Cheng who is 21 and is working. He sees them occasionally and talks to them. He is no longer in contact with his mother. The patient indicates he would like to be busy. I questioned him what he feels he needs in terms of psychiatric care, he is more focused on getting pain medications and he is not getting psychiatric medications at this time. He is willing to go to AA. He has gone to them in the past and go to there. He also indicates he think a day treatment program might be a good idea as well. PHYSICAL EXAMINATION: VITAL SIGNS: Include a temperature of 98.8, pulse rate of 82, blood pressure of 144/87, respiratory rate of 15 and O2 saturations of 94%. LABORATORY DATA: The patient's bilirubin, AST and ALT are elevated; and he was negative for HIV. Blood cultures were negative. MENTAL STATUS EXAM: The patient is alert and oriented x3. His eye contact is fair. His behavior is cooperative. His speech rate and volume are within normal limits. His mood is blunted. His affect is constricted. His thoughts are goal directed. His affect is not changed no matter what the topic. He is very conversational and relating information. He denies being suicidal or homicidal. Denies the presence of hallucinations, delusions or paranoia. His concentration and focus are poor, this is a long-term issue. His appetite, and his memory both short and long-term appears to be adequate. His sleep and his appetite are erratic; he sleeps some nights, and other night, he does not sleep with his appetite. DIAGNOSTIC IMPRESSION: Bipolar disorder by history; alcohol use disorder, severe, chronic, ongoing. PLAN: The patient denies being suicidal or homicidal and appears in no imminent danger of hurting himself or others. He is not interested at this moment and getting back on his psychiatric medications. He is very, very focused on pain medications at this time because he "screwed up his back" with his last seizure. He indicates that he would like outpatient referrals for counseling and a day program, indicates that he would like to have some kind of "take up his time." He is willing to attend AA as well. We will continue to follow the patient, it may be that he is appropriate to come upstairs to the psychiatric unit. Once medically clear, that can be assessed as medically he stabilizes. We will continue to follow. Thank you for the consult. Tanya Oneil APN
[2017-04-30] MEDS: Thiamine 100 mg/ml Inj IM SCH (09:32)
[2017-04-30] MEDS: Multivitamin With Minerals Tab PO SCH (09:33)
[2017-04-30] MEDS: Lidocaine 5% Patch TD SCH (09:34)
--- NOTE | 2017-04-30 09:37 | EEG ---
DATE: EEG REPORT CONDITION OF THE RECORDING: Drowsy. DIAGNOSIS: Seizure. MEDICATIONS: Reviewed by nurse's reconciliation sheet. INTERPRETATION: This is a 16-channel international recording. Background activity was composed of 8 cycles per second. There was increased amount of beta activity of 16 to 20 cycles per second seen in this recording, which is consistent of medication effect. There was a small amount of theta activity of 5 to 7 cycles per second seen in this tracing. Drowsiness was characterized by mixed beta and theta activities. Sleep was characterized by vertex transient waves, sleep spindles, and bilateral slowing. Photic stimulation showed no changes in the tracing. No paroxysmal activity is noted in this recording. CONCLUSION: This is an normal drowsy EEG. No evidence of any epileptiform activity. Please clinically correlate. Elmer Crockett MD
[2017-04-30] MEDS: Enoxaparin 40 mg Syringe SC SCH (09:40)
--- NOTE | 2017-04-30 11:35 | CP.PCM.PN ---
Subjective - Date & Time of Evaluation Date of Evaluation: 04/30/17 Time of Evaluation: 07:45 - Subjective Subjective: IM Progress Note for Dr. Barreto Service Patient seen and examined at bedside, sleeping soundly and not in overt distress. No acute events reported overnight. This AM, after waking patient, no acute complaints, reports stable back pain at rest, denies chest pain, shortness of breath, nausea, emesis. Objective - Vital Signs/Intake and Output Vital Signs (last 24 hours): Temp Pulse Resp BP Pulse Ox 98.6 F 76 20 122/78 94 L 04/30/17 06:00 04/30/17 09:33 04/30/17 06:00 04/30/17 09:33 04/30/17 06:00 Intake and Output: 04/30/17 04/30/17 06:59 18:59 Intake Total 960 Balance 960 - Medications Medications: Current Medications Chlordiazepoxide (Librium) 25 mg PO BID [facility] PRN Reason: Taper Stop: 05/01/17 21:14 Last Admin: 04/30/17 09:32 Dose: 25 mg Chlordiazepoxide (Librium) 50 mg PO Q4H PRN PRN Reason: Symptoms of alcohol withdrawl Last Admin: 04/29/17 02:07 Dose: 50 mg Clonidine HCl (Catapres) 0.1 mg PO Q4H PRN PRN Reason: Symptoms of alcohol withdrawl Enoxaparin Sodium (Lovenox) 40 mg SC DAILY [facility] PRN Reason: Protocol Last Admin: 04/30/17 09:40 Dose: 40 mg Folic Acid (Folic Acid) 1 mg PO DAILY [facility] Last Admin: 04/30/17 09:33 Dose: 1 mg Haloperidol Lactate (Haldol) 2 mg IM Q8H PRN PRN Reason: Agitation Last Admin: 04/28/17 01:29 Dose: 2 mg Lidocaine (Lidoderm) 1 ea TD DAILY [facility] Last Admin: 04/30/17 09:34 Dose: 1 ea Lorazepam (Ativan) 1 mg IVP Q4H PRN PRN Reason: Symptoms of alcohol withdrawl Last Admin: 04/30/17 09:33 Dose: 1 mg Metoprolol Tartrate (Lopressor) 25 mg PO BID [facility] Last Admin: 04/30/17 09:33 Dose: 25 mg Multivitamins/Minerals (Therapeutic-M Tab) 1 tab PO DAILY [facility] Last Admin: 04/30/17 09:33 Dose: 1 tab Ondansetron HCl (Zofran Inj) 4 mg IVP Q4H PRN PRN Reason: Nausea/Vomiting Pantoprazole Sodium (Protonix Ec Tab) 40 mg PO 0600,1600 [facility] Last Admin: 04/30/17 05:41 Dose: 40 mg Thiamine HCl (Vitamin B1 Inj) 100 mg IM DAILY [facility] Last Admin: 04/30/17 09:32 Dose: 100 mg Tizanidine HCl (Zanaflex) 2 mg PO TID PRN PRN Reason: Pain, moderate (4-7) Last Admin: 04/30/17 09:33 Dose: 2 mg Tramadol/Acetaminophen (Ultracet 37.5/325 Mg) 1 tab PO Q8H PRN PRN Reason: Pain, moderate (4-7) Trazodone HCl (Desyrel) 50 mg PO HS PRN PRN Reason: Insomnia Last Admin: 04/30/17 03:38 Dose: 50 mg - Labs Labs: 04/30/17 07:00 04/30/17 07:00 PT 12.8 SECONDS (9.4-12.5) H 04/27/17 16:35 INR 1.12 (0.93-1.08) H 04/27/17 16:35 APTT 43.6 Seconds (25.1-36.5) H 04/27/17 16:35 - Additional Findings Additional findings: - Constitutional Appears: Non-toxic, No Acute Distress, Resting comfortably in bed - Head Exam Head Exam: ATRAUMATIC, NORMAL INSPECTION, NORMOCEPHALIC - Eye Exam Eye Exam: EOMI, Normal appearance. absent: Conjunctival injection, Scleral icterus Pupil Exam: absent: Irregular, Unequal - ENT Exam ENT Exam: Mucous Membranes Moist - Respiratory Exam Respiratory Exam: Clear to Ausculation Bilateral, NORMAL BREATHING PATTERN. absent: Accessory Muscle Use, Chest Wall Tenderness, Decreased Breath Sounds, Rales, Rhonchi, Wheezes - Cardiovascular Exam Cardiovascular Exam: REGULAR RHYTHM, RRR, +S1, +S2. absent: Bradycardia, Tachycardia, Irregular Rhythm, JVD, +S4 - GI/Abdominal Exam GI & Abdominal Exam: Soft, Normal Bowel Sounds. absent: Distended, Guarding, Rigid, Tenderness - Extremities Exam Extremities Exam: Normal Capillary Refill, Normal Inspection. absent: Calf Tenderness, Pedal Edema, Tenderness - Back Exam Back Exam: vertebral tenderness (predominantly lumbar and lower thoracic region ) on palpation, no pain at rest lying on back or side - Neurological Exam Neurological Exam: Sleeping but easily arousable; awake and alert once aroused, appropriate mentation, moving all extremities spontaneously, changes position in bed without acute issue - Psychiatric Exam Psychiatric exam: Anxious, Normal Affect - Skin Skin Exam: Dry, Intact, Normal Color, Warm Assessment and Plan - Assessment and Plan (Free Text) Assessment: This is a 41 yo male with a past medical history of alcohol abuse, Hepatitis C , Bipolar disorder, and depression who was admitted for seizures, likely secondary to alcohol withdrawal. He is also being worked up for acute vs sub- acute spinal compression fracture. Plan: 1) Seizure/Syncope -most likely due to alcohol withdrawal, stopped alcohol abruptly approx 4 days prior to presentation -CT Head, Brain MRI and MRA Head all unremarkable for acute pathology -Carotid duplex showing bilateral proximal ICA stenoses -Echo showing dilated RA, mild TR and normal size and function of the LV -EEG completed, official read pending -Seizure precautions -Neurology and Cardiology consulted, appreciate all recs 2) Acute on Chronic LBP with associate sciatica -MRI Lumbar Spine showing mild acute vs subacute compression fractures of T12, L2 and L3 -Zanaflex PO and Lidocaine TD for pain control, Ultracet PO q8 PRN added as per Primary -Opioid pain medications should be avoided for pain control as they can lower seizure threshold, per Neurology -IR consulted for kyphoplasty evaluation; pending possible kyphoplasty tomorrow (05/01/17) -PT/OT Evaluation, encouraged OOB to chair as tolerated 3) Alcohol Abuse/Withdrawal -Patient reports daily alcohol consumption with his last drink approximately 4 days prior to presentation to hospital -Libruim 25mg PO TID -Librium 50mg PO Q4H and Ativan 1mg IVP Q4H PRN -Zofran PRN for N/V -Daily Folic Acid, Thiamine and MV supplementation -CIWA Assessments Q4H -Seizure, Aspiration and Fall precautions in place 4) History of Hepatitis C with associated transaminitis -Abdominal ultrasound notable for hepatosplenomegaly, fatty infiltration of liver -Trending LFT's with daily CMP's; slight increase in AST/ALT, but decreased TBili today -Hepatitis Panel showing antibodies to Hepatitis C -GI and ID consulted, appreciate all recommendations 5) History of HTN -Continue Metoprolol and Clonidine 6) History of Bipolar disorder -Continue Haldol -Psych consulted, all recommendations appreciated 7) History of Insomnia -Continue home Trazadone Dispo: Telemetry, pending possible kyphoplasty tomorrow (05/01/18) FEN: Regular diet Access: Peripheral IV Consults: Neuro, Cardio, Psych, GI, ID, IR Ppx: Protonix for GI, Lovenox for DVT Patient seen, reviewed, and discussed with attending, Dr. Barreto
[2017-04-30] MEDS: TraMADol/Apap 37.5/325 mg Tab PO PRN ×2 (11:46→20:39)
--- NOTE | 2017-04-30 12:39 | PN ---
DATE: 04/30/2017 SUBJECTIVE: The patient is lying in bed. He continues to complain of low back pain. He denies any abdominal pain, nausea, or vomiting. CURRENT MEDICATIONS: Include Ativan 1 gram IV q. 4 hours p.r.n. withdrawal, Catapres 0.1 mg q. 4 hours. p.r.n. withdrawal, trazodone 50 mg bedtime, folic acid 1 mg daily, Haldol 2 mg IM q. 8 hours. p.r.n. agitation, Librium 50 mg p.o. q .4 hours. p.r.n. withdrawal, Lidoderm patch, Lopressor 25 mg p.o. b.i.d., Lovenox 40 mg subcutaneous daily pantoprazole 40 mg p.o. b.i.d. and multivitamins. PHYSICAL EXAMINATION: VITAL SIGNS: Reveal temperature of 98.6, blood pressure of 120/61, and heart rate of 69. HEENT: Reveal sclerae to be white. Conjunctivae are pink. NECK: Supple. CHEST: Lungs are clear. HEART: Exam reveals regular rate and rhythm. GASTROINTESTINAL: Abdomen is soft and nontender. No mass. There is no hepatomegaly. EXTREMITIES: Show no edema. LABORATORY DATA: Revealed white blood cell count of 6.6 and hemoglobin of 14.7. Chemistries revealed total bilirubin down to 1.6, AST of 294, and ALT of 529. IMPRESSION: 1. Seizure disorder. 2. Elevated liver enzymes secondary to alcoholism and possible hepatitis C infection. 3. Low back pain secondary to compression fractures of lumbar spine. RECOMMENDATIONS: 1. Continue current treatment. 2. The patient is scheduled for kyphoplasty with an interventional radiology tomorrow. 3. Await hepatitis C quantitative. Hayden Tam MD
--- NOTE | 2017-04-30 13:17 | CARD ---
APPROVED REPORT EKG Measurement Heart [id number] <Conclusion> Normal sinus rhythm Normal ECG
--- NOTE | 2017-04-30 18:35 | PN ---
DATE: 04/30/2017 CARDIOLOGY FOLLOWUP SUBJECTIVE: The patient is in no distress. OBJECTIVE: VITAL SIGNS: Blood pressure is 109/71, heart rate in the 60s. NECK: Negative JVD. LUNGS: Without rales. HEART: S1 and S2. EXTREMITIES: Without edema. LFTs still elevated. The hemoglobin is 14.7. IMPRESSION: 1. Alcoholic withdrawal. 2. Seizures. 3. History of multidrug abuse. 4. No evidence for acute cardiac disease. Given these findings, review of his echocardiogram reveals normal LV systolic function. No evidence for alcoholic cardiomyopathy at this time. Given these findings, we will sign off the case today. No further cardiac workup is indicated at this time. Jean Claude Sierra MD
--- NOTE | 2017-04-30 22:54 | PN ---
DATE: 04/30/2017 SUBJECTIVE: The patient is in bed, in no acute distress, nontoxic, was seen earlier this morning and still continued pain on and off, requesting more pain medication. PHYSICAL EXAMINATION: VITAL SIGNS: Temperature is 97, blood pressure is 120/70, respiratory rate 18. HEENT: Examination of HEENT is unremarkable. NECK: Supple. LUNGS: Have decreased breath sounds. HEART: Normal S1 and S2. ABDOMEN: Soft. LABORATORY DATA: Laboratory examination reveals a white count of 6.6, hemoglobin of 14, platelets of 170. Chemistries reveals a BUN of 14, creatinine of 0.8 and AST and ALT are noted and elevated. Urinalysis is noted. Toxicology is positive for opiates. Hepatitis C is positive. HIV is negative. Influenza is negative. Microbiology reveals the blood cultures are negative. Review of orders reveals the patient to be off of the antibiotics. Dr. Kaleb Hilliard's note is reviewed. Dr. Jean Claude Sierra's progress notes from this morning was reviewed. ASSESSMENT AND PLAN: This is a 41-year-old male with chronic back pain, history of intravenous drug abuse, still active user, also with alcoholism, hepatitis B and C, history of bipolar, depression, hypertension, anxiety, presenting with systemic inflammatory response syndrome with a fracture of L1 and L3. Currently off of antibiotics. No evidence of infection. We will follow with you. John Schmid MD
--- NOTE | 2017-05-01 01:03 | PN ---
DATE: 04/30/2017 He is being seen today for a followup consultation and the date is 04/30/2017. PRESENTATION: The patient is a 41-year-old man seen at this hospital bedside. The patient indicates that he is going to have surgery tomorrow. The patient was originally admitted to the hospital on 04/27/2017. He came in having had a seizure observed by a friend, had some shortness of breath with syncopal episode. He has not been taking any psychiatric medications for a while, and he has not been following up in his medical care and had been drinking and using drugs. A consult was called due to his alcohol abuse and psychiatric history. The patient indicates that he is in a lot of pain and this is what he is focused on. He is worried he is not getting enough pain medications. He is supposed to have surgery on his back tomorrow and he confirmed only about the pain management portion of things. According to nurse's notes, he has been pleasant and cooperative on the unit. There have been no behavioral issues, and there has been no indications that he has had any mood swings or psychiatric issues while on the floor. PHYSICAL EXAMINATION: VITAL SIGNS: The patient's current vital signs are temperature of 97.5, pulse rate 56, blood pressure of 124/81, respiratory rate 20, and an O2 saturation of 96%. MEDICATIONS: The patient's current medications include Librium 50 mg q.4 hours p.r.n. symptoms of alcohol withdrawal. He last received p.r.n. on 04/29/2017 at 2 a.m. He does get Librium 25 mg p.o. b.i.d. routinely. He is additionally on Catapres, Lovenox, folic acid, Haldol 2 mg q.8 hours as needed that was last used on 04/28/2017. He is on Ativan 1 mg IV push q.4 hours as needed. He last received that on 04/30/2017 at 9:33 in the morning. He is on Lopressor, vitamins, thiamine, tramadol, and trazodone 50 mg at bedtime. MENTAL STATUS EXAM: The patient is alert and oriented x3. His eye contact is poor. His behavior is cooperative. His speech, rate, and volume are within normal limits. Mood is euthymic. Affect is full. Thoughts are goal directed, but concrete. He is very focused on his pain and how it will be managed. He denies being suicidal or homicidal. He denies the presence of hallucinations, delusions, or paranoia. His concentration and his focus appeared to be poor. His memory both short and intermission coordinator appears to be adequate. His appetite and his sleep, he indicates are normalized. DIAGNOSTIC IMPRESSION: Bipolar disorder unspecified by history; alcohol use disorder; severe chronic ongoing alcohol withdrawal. PLAN: The patient denies being suicidal or homicidal and did not appear in any danger to himself or others at this time. He denies any symptoms of psychosis or depression or anxiety; indicates that his only problem is his pain and pain management. He has been off of his meds for over a month. His brother did three months ago, and he really has been using a lot of alcohol and drugs since then, however, there are no symptoms for me to treat at this moment and time. The patient has requested outpatient treatment, and I have give him a list of treatments sources from the contact when he leaves the hospital. I will sign off on this patient. If there are further needs while he is in hospital, please call back. Thank you for the consult. Tanya Oneil APN
[2017-05-01] MEDS: Pantoprazole 40 mg EC Tab PO SCH ×2 (06:08→17:00)
[2017-05-01] MEDS ORDERED: Midazolam 2 MG/2 ML VIAL ONE ×3 (07:04→08:47)
[2017-05-01] MEDS ORDERED: Lidocaine 2% Inj (20ml) ONE (07:04)
[2017-05-01] MEDS ORDERED: HEPARIN SODIUM/NS 2,000 ML IV ONE (07:05)
[2017-05-01] MEDS ORDERED: Iohexol 350mgl/ml 50 ML ONE ×2 (07:06→08:28)
[2017-05-01 07:45] LABS: ALB/GLOB RATIO 1.1 (1.1-1.8); ALBUMIN 4.5 g/dL (3.0-4.8); ALT/SGPT 544 U/L (7-56); AST/SGOT 258 U/L (17-59); BILIRUBIN,DIRECT 0.7 mg/dL (0.0-0.4); BLOOD UREA NITROGEN 12 mg/dL (7-21); CALCIUM 10.1 mg/dL (8.4-10.5); GFR AFRICAN-AMERICAN > 60; GFR NON-AFRICAN AMERICAN > 60
[2017-05-01 07:50] LABS: BASO # 0.02 K/mm3 (0.0-2.0); BASO % 0.3 % (0.0-3.0); EOS # 0.2 (0.0-0.7); EOS % 3.3 % (1.5-5.0); GRAN # 3.18 (1.4-6.5); GRAN % 47.7 % (50.0-68.0); HEMOGLOBIN 15.5 g/dL (14.0-18.0); LYMPH # 2.5 (1.2-3.4); LYMPH % 36.7 % (22.0-35.0); MEAN CELL VOLUME 96.9 fl (80.0-105.0); MEAN CORPUSCULAR HEMOGLOBIN 32.4 pg (25.0-35.0); MEAN CORPUSCULAR HGB CONC 33.4 g/dl (31.0-37.0); MEAN PLATELET VOLUME 10.5 fl (7.0-11.0); MONO # 0.8 (0.1-0.6); RBC 4.79 10^6/uL (3.5-6.1); RED CELL DISTRIBUTION WIDTH 14.9 % (11.5-14.5); WHITE BLOOD COUNT 6.7 10^3/ul (4.5-11.0)
--- NOTE | 2017-05-01 08:40 | PN ---
DATE: 04/30/2017 LOCATION: The patient is seen in room 374, bed 2. Again as mentioned before entering the room, the patient was seen and examined with the pediatrician/medical doctor, we quietly entered the room and we saw the patient lying in the bed comfortable, in no distress, watching TV, but as soon as I said hello to the patient, the patient started complaining of back pain. The patient's overnight nurse's notes were reviewed. No adverse events documented overnight. PHYSICAL EXAMINATION: VITAL SIGNS: T-max 97.5, telemetry shows sinus rhythm, heart rate in 60s, 70s, and 82, respirations 20, blood pressure is in the last 24 hours 144/81, 144/87, 128/38, 120/61, 122/78, respiration 20, O2 sat 94-98%. HEAD: Normocephalic, atraumatic. HEENT: Shows pink conjunctivae. Anicteric sclerae. No oropharyngeal lesion. No neck rigidity. CHEST: Symmetrical. No visible jugular venous distention. No audible carotid bruit. LUNGS: Shows no rales, crackles or wheezing. CARDIOVASCULAR: Shows S1, S2, regular rhythm. ABDOMEN: Protuberant, obese. Positive bowel sounds. No hepatosplenomegaly palpated. No costovertebral angle tenderness. No guarding. No rigidity. No rebound tenderness. GENITALIA: Male. RECTAL: Deferred. EXTREMITIES: Shows no pitting, no calf tenderness, no Homans' sign. The patient was able to sit up without assistance. The patient was able to get out of the bed without assistance. The patient was able to ambulate without assistance and without pain. NEUROLOGIC: The patient is neurologically alert, awake and x3. Cranial nerves: II-XII intact. Gait examination independent. VASCULAR: Examination palpable pulses. DIAGNOSTICS: 04/30/2017, WBC 6.6, hemoglobin/hematocrit 14.7/45.0, platelet 170. Sodium 140, potassium 4.4, chloride 106, CO2 23, anion gap 15, BUN 14, creatinine 0.8, GFR greater than 60, glucose 108, calcium 9.4, magnesium 2.3, total bili 1.6, direct bili 0.7, AST 294, ALT 529. C-reactive protein is 5.9. The patient's RPR is nonreactive. HIV is nonreactive. Influenza titers negative. Microbiology cultures are negative. The patient's MRI of the lumbar spine, MRI brain, MRA brain, carotid ultrasound, CAT scan of the head, ultrasound of the abdomen, CT angiogram, echocardiogram, EKG all of the above results explained to the patient in layman's language. The patient's EKG from 04/30/2017 shows sinus rhythm, left ventricular hypertrophy pattern by voltage criteria. The patient's EEG was reported in the [facility], which shows drowsy EEG, no evidence of epileptiform activity. The patient seen by Gastroenterology and Cardiology. Their recommendations were noted. IMPRESSION AND PLAN: 1. Witnessed syncope versus seizure with mouth foaming. 2. Bipolar disorder. 3. Alcohol use disorder. 4. Questionable and possible alcohol related seizure versus . 5. Delirium tremors. 6. Alcohol and polysubstance abuse and dependence. 7. Chest pain, etiology undetermined. 8. Chronic alcohol abuse and dependence. 9. Hepatitis C reactive antibody with severe transaminitis and hyperbilirubinemia. 10. History of heroin abuse. 11. Transaminitis and hepatitis C. 12. Questionable seizure disorder. 13. Alcohol withdrawal. 14. Leukocytosis. 15. Erythrocytosis. 16. Transient lactic acidosis. 17. Elevated C-reactive protein of greater than 5. 18. Hypercholesteremia with elevated LDL. 19. Slightly elevated thyroxine level. 20. Microscopic hematuria. 21. Hepatitis C antibody reactive. 22. Morbid obesity. 23. Chronic back pain syndrome. 24. Episodic sinus bradycardia. PLAN: At this time, the patient is scheduled for kyphoplasty in the a.m. repeat CMP, LFT, magnesium ordered. CURRENT CONSULTATION: Gastroenterology, Infectious Disease, Neurology, Cardiology, Interventional Radiology. CURRENT MEDICATIONS: 1. Ativan 1 mg IV q. four p.r.n. 2. Clonidine 0.1 mg p.o. q. 4 h. p.r.n. 3. Desyrel 50 mg at bedtime. p.r.n. 4. Folic acid 1 mg daily. 5. Haldol 2 mg IM q. 8 hours. p.r.n. 6. Librium 50 mg q. 4 hours p.r.n. 7. The patient is on Librium 25 mg twice a day, taper protocol to end tomorrow. 8. Lidoderm 5% patch daily. 9. Lopressor to be discontinued. 10. Lovenox 40 mg subcu daily. 11 Protonix 40 mg daily. 12. Multivitamin 1 tablet daily. 13. The patient is started on Ultracet 1 tablet q. 8 p.r.n., but because of the patient's elevated LFTs, Ultracet will be discontinued. The patient will be put on Ultram. 14. Would avoid acetaminophen and Tylenol products. At present, the patient is to be continued on above. The patient is also on thiamine 100 mg IM daily. The patient is on Zanaflex 2 mg t.i.d. p.r.n., Zofran 4 mg IV q. 4 p.r.n. The patient is on regular diet. The patient has been ordered out of bed to chair. Physical therapy, occupational therapy ordered. Ambulation therapy, gait therapy, gait training ordered. The patient has seen been by the physical therapist today. Their recommendation was home with services followed with outpatient PT. Dictated and electronically signed, not read. Signing off, Wilber Barreto MD
[2017-05-01] MEDS ORDERED: Sodium Chloride 0.45% 1,000 ML IV SCH (09:45)
--- NOTE | 2017-05-01 10:53 | CP.PCM.PN ---
Subjective - Date & Time of Evaluation Date of Evaluation: 05/01/17 Time of Evaluation: 14:30 - Subjective Subjective: IM Progress Note for Dr. Barreto Service Patient seen and examined at bedside, s/p kyphoplasty of T12 and L2 this AM. No acute events reported overnight. Currently, complains of back pain despite resting comfortably in bed prior to examiner waking pt; denies chest pain, shortness of breath, emesis, nausea. No reported seizure like activity since admission. Objective - Vital Signs/Intake and Output Vital Signs (last 24 hours): Temp Pulse Resp BP Pulse Ox 98.5 F 95 H 14 149/96 H 96 05/01/17 10:28 05/01/17 10:28 05/01/17 10:28 05/01/17 10:28 05/01/17 10:28 Intake and Output: 05/01/17 05/01/17 06:59 18:59 Intake Total 410 Output Total 0 Balance 410 - Medications Medications: Current Medications Acetaminophen (Tylenol 325mg Tab) 650 mg PO Q4 PRN PRN Reason: Pain, Mild (1-3) Chlordiazepoxide (Librium) 25 mg PO DAILY [facility] PRN Reason: Taper Stop: 05/01/17 21:14 Last Admin: 04/30/17 18:25 Dose: 25 mg Chlordiazepoxide (Librium) 50 mg PO Q4H PRN PRN Reason: Symptoms of alcohol withdrawl Last Admin: 04/29/17 02:07 Dose: 50 mg Clonidine HCl (Catapres) 0.1 mg PO Q4H PRN PRN Reason: Symptoms of alcohol withdrawl Enoxaparin Sodium (Lovenox) 40 mg SC DAILY [facility] PRN Reason: Protocol Last Admin: 04/30/17 09:40 Dose: 40 mg Folic Acid (Folic Acid) 1 mg PO DAILY [facility] Last Admin: 04/30/17 09:33 Dose: 1 mg Haloperidol Lactate (Haldol) 2 mg IM Q8H PRN PRN Reason: Agitation Last Admin: 04/28/17 01:29 Dose: 2 mg Sodium Chloride (Sodium Chloride 0.45%) 1,000 mls @ 80 mls/hr IV .[id number] [facility] Stop: 05/02/17 08:00 Lidocaine (Lidoderm) 1 ea TD DAILY [facility] Last Admin: 04/30/17 09:34 Dose: 1 ea Lorazepam (Ativan) 1 mg IVP Q4H PRN PRN Reason: Symptoms of alcohol withdrawl Last Admin: 05/01/17 06:17 Dose: 1 mg Multivitamins/Minerals (Therapeutic-M Tab) 1 tab PO DAILY [facility] Last Admin: 04/30/17 09:33 Dose: 1 tab Ondansetron HCl (Zofran Inj) 4 mg IVP Q4H PRN PRN Reason: Nausea/Vomiting Pantoprazole Sodium (Protonix Ec Tab) 40 mg PO 0600,1600 [facility] Last Admin: 05/01/17 06:08 Dose: 40 mg Thiamine HCl (Vitamin B1 Inj) 100 mg IM DAILY [facility] Last Admin: 04/30/17 09:32 Dose: 100 mg Tizanidine HCl (Zanaflex) 2 mg PO TID PRN PRN Reason: Pain, moderate (4-7) Last Admin: 04/30/17 16:08 Dose: 2 mg Tramadol HCl (Ultram) 50 mg PO Q8H PRN PRN Reason: Pain, moderate (4-7) Last Admin: 05/01/17 04:23 Dose: 50 mg Trazodone HCl (Desyrel) 50 mg PO HS PRN PRN Reason: Insomnia Last Admin: 04/30/17 23:30 Dose: 50 mg - Labs Labs: 05/01/17 06:30 05/01/17 06:30 PT 12.8 SECONDS (9.4-12.5) H 04/27/17 16:35 INR 1.12 (0.93-1.08) H 04/27/17 16:35 APTT 43.6 Seconds (25.1-36.5) H 04/27/17 16:35 - Additional Findings Additional findings: - Constitutional Appears: Non-toxic, No Acute Distress, Resting comfortably in bed - Head Exam Head Exam: ATRAUMATIC, NORMAL INSPECTION, NORMOCEPHALIC - Eye Exam Eye Exam: EOMI, Normal appearance. absent: Conjunctival injection, Scleral icterus Pupil Exam: absent: Irregular, Unequal - ENT Exam ENT Exam: Mucous Membranes Moist - Respiratory Exam Respiratory Exam: Clear to Ausculation Bilateral, NORMAL BREATHING PATTERN. absent: Accessory Muscle Use, Chest Wall Tenderness, Decreased Breath Sounds, Rales, Rhonchi, Wheezes - Cardiovascular Exam Cardiovascular Exam: REGULAR RHYTHM, RRR, +S1, +S2. absent: Bradycardia, Tachycardia, Irregular Rhythm, JVD, +S4 - GI/Abdominal Exam GI & Abdominal Exam: Soft, Normal Bowel Sounds. absent: Distended, Guarding, Rigid, Tenderness - Extremities Exam Extremities Exam: Normal Capillary Refill, Normal Inspection. absent: Calf Tenderness, Pedal Edema, Tenderness - Back Exam Back Exam: avoiding palpation of spine due to s/p kyphoplasty today, no gross deformity or erythema noted - Neurological Exam Neurological Exam: Resting comfortably in bed post-procedure, otherwise awake and alert, answers questions appropriately - Psychiatric Exam Psychiatric exam: Lethargic but otherwise Normal Mood & Affect - Skin Skin Exam: Dry, Intact (except as documented in Back Exam), Normal Color, Warm Assessment and Plan - Assessment and Plan (Free Text) Assessment: This is a 41 yo male with a past medical history of alcohol abuse, Hepatitis C , Bipolar disorder, and depression who was admitted for seizures, likely secondary to alcohol withdrawal. He is also s/p kyphoplasty today for acute vs subacute compression fractures of T12, L2, and L3. Plan: 1) Seizure/Syncope -most likely due to alcohol withdrawal, stopped alcohol abruptly approx 4 days prior to presentation -CT Head, Brain MRI and MRA Head all unremarkable for acute pathology -Carotid duplex showing bilateral proximal ICA stenoses -Echo showing dilated RA, mild TR, and normal size and function of the LV -EEG completed, official read pending -Seizure precautions -Neurology and Cardiology signed off 2) Acute on Chronic LBP with associate sciatica -MRI Lumbar Spine showing mild acute vs subacute compression fractures of T12, L2 and L3 -Zanaflex PO and Lidocaine TD for pain control, Ultram PO q8 PRN added as per Primary -Opioid pain medications should be avoided for pain control as they can lower seizure threshold, per Neurology -IR consulted for kyphoplasty evaluation; s/p kyphoplasty of T12 and L2 this AM ; additional procedures can be pursued electively as outpatient as per IR -PT/OT, encouraged OOB to chair as tolerated 3) Alcohol Abuse/Withdrawal -Patient reports daily alcohol consumption with his last drink approximately 4 days prior to presentation to hospital -Libruim 25mg PO TID -Librium 50mg PO Q4H and Ativan 1mg IVP Q4H PRN -Zofran PRN for N/V -Daily Folic Acid, Thiamine and MV supplementation -CIWA Assessments Q4H -Seizure, Aspiration and Fall precautions in place 4) History of Hepatitis C with associated transaminitis -Abdominal ultrasound notable for hepatosplenomegaly, fatty infiltration of liver -Trending LFT's with daily CMP's; AST/ALT/Tbili all slightly improved today -Hepatitis Panel showing antibodies to Hepatitis C -GI and ID consulted, appreciate all recommendations 5) History of HTN -Continue Metoprolol and Clonidine 6) History of Bipolar disorder -Continue Haldol -As per Psych, no acute intervention, patient given referrals for outpt followup at his request, signing off 7) History of Insomnia -Continue home Trazadone Dispo: Telemetry, s/p kyphoplasty, pending d/c tomorrow (05/02/17) FEN: Regular diet Access: Peripheral IV Consults: Neuro (signed off), Cardio (signed off), Psych (signed off), GI, ID, IR Ppx: Protonix for GI, Lovenox for DVT Patient seen, reviewed, and discussed with attending, Dr. Barreto
[2017-05-01] MEDS: Multivitamin With Minerals Tab PO SCH (11:16)
[2017-05-01] MEDS: Thiamine 100 mg/ml Inj IM SCH (11:16)
[2017-05-01] MEDS: Lidocaine 5% Patch TD SCH (11:38)
[2017-05-01] MEDS: Enoxaparin 40 mg Syringe SC SCH (12:57)
--- NOTE | 2017-05-01 15:08 | PN ---
DATE: 05/01/2017 SUBJECTIVE: Patient is seen in room 374, bed 2. Patient was also seen on his way to interventional radiology procedure for kyphoplasty. Overnight nurse's notes were reviewed. Patient's apatite was noted to be 80%. Patient ambulated around the hallways with a steady gait. Patient had one episode of pain documented 11/20, Ultracet was given yesterday. Patient slept most of the night. Patient had one or two episodes of back pain, complaining of anxiety and insomnia. OBJECTIVE: VITAL SIGNS: T-max 98.9; pulse 76, 60, 75, 72; blood pressure 131/80, 144/78; respirations 18; O2 sat is 94%, 96%, 98%, and 95%. HEENT: Head examination is normocephalic, atraumatic. HEENT examination shows pink conjunctivae. Anicteric sclerae. No oropharyngeal lesion. NECK: No neck rigidity. No audible carotid bruit. No jugular venous distention. CHEST: Kyphosis. LUNGS: Shows no rales, crackles or wheezing. CARDIOVASCULAR: Shows S1, S2 regular rhythm. ABDOMEN: Soft, protuberant. Positive bowel sounds. Obese. No hepatosplenomegaly noted. No guarding. No rigidity. No rebound tenderness. GENITALIA: Male. RECTAL: Deferred. EXTREMITIES: Shows no pitting edema. No calf tenderness. No Homans' sign. No clubbing, no cyanosis. VASCULAR: Palpable pulses. NEUROLOGIC: The patient is alert, awake, responsive. Cranial nerves II-XII grossly intact. Gait examination is independent without assistance. MUSCULOSKELETAL: Shows a body mass index of 33. DIAGNOSTICS: On 05/01; WBC 6.7, hemoglobin/hematocrit 15.5/46.4, platelet 207. Chemistry shows sodium 142, potassium 4.1, chloride 106, CO2 of 24, anion gap 16, BUN 12, creatinine 0.8, GFR greater than 60, glucose 96, calcium 10.1, magnesium 2.0, total bili 1.4, direct bili 0.7, AST 258, ALT 544. LFTs are normal. Blood cultures, no growth. IMPRESSION AND PLAN: 1. Witnessed syncope versus seizure with mouth foaming. 2. Poor compliance. 3. Unspecified type bipolar disorder. 4. Alcohol use disorder and severe chronic ongoing alcohol withdrawal. 5. Morbid obesity with elevated body mass index of 32.7. 6. Leukocytosis. 7. Erythrocytosis. 8. Transient granulocytosis. 9. Transient lactic acidosis. 10. Transaminitis with hyperbilirubinemia. 11. Elevated C-reactive protein. 12. Hypercholesteremia with elevated LDL. 13. Status post T12 and L2 kyphoplasty without complication. 14. Chronic back pain problem. 15. History of narcotic dependence. 16. History of polysubstance abuse, history of intravenous drug use, history of alcoholism, history of hepatitis C and hepatitis B, history of bipolar disorder, history of depression. 17. Systemic inflammatory response syndrome. 18. Anxiety disorder. 19. Insomnia. Plan at this time, the patient has been ordered repeat labs. The patient has been ordered consultation with Gastroenterology, Infectious Disease, Neurology, Cardiology, Interventional Radiology and Psychiatry. CURRENT MEDICATIONS: 1. The patient is on 0.45 half normal saline at 80 mL an hour. 2. Ativan 1 mg IV q.4 p.r.n. 3. Clonidine 0.1 mg q.4 p.r.n. 4. Desyrel 50 mg h.s. p.r.n. 5. Folic acid 1 mg daily. 6. Haldol 2 mg IM q.8 hours p.r.n. 7. Librium 50 mg p.o. q.4 hours p.r.n. 8. Librium 25 mg p.o. daily. 9. Lidoderm 5% patch to the affected area. 10. Lovenox 40 mg subcu daily. 11. Protonix 40 mg twice a day. 12. Multivitamin 1 tablet daily. 13. Tylenol 650 q.4 p.r.n. 14. Ultram 50 mg q.8 p.r.n. 15. Thiamine 100 mg IM daily. 16. Zanaflex 2 mg t.i.d. p.r.n. 17. Zofran 4 mg IV q.4 hours p.r.n. At present patient management was discussed with Dr. Jean Claude Yan. His recommendation is that patient is status post T12 and L2 kyphoplasty without complication to monitor for back pain over next 24 hours. If the patient is symptomatically improved, the patient can be discharged in a.m. Recommendations about L3 compression fracture to treat conservatively and if the patient develops symptoms, the patient can have an elective outpatient L3 kyphoplasty. Dictated and electronically signed, not read. Wilber Barreto MD
--- NOTE | 2017-05-01 16:11 | PN ---
DATE: 05/01/2017 SUBJECTIVE: The patient is lying in a stretcher. He is status post kyphoplasty. He is complaining of back pain. He denies any abdominal pain. No tremors. PHYSICAL EXAMINATION: VITAL SIGNS: Reveal temperature of 98.5, blood pressure of 149/96, and heart rate of 95. HEENT: Reveal sclerae to be white. Conjunctivae are pink. NECK: Supple. LUNGS: Clear. HEART: Reveals a regular rate and rhythm. ABDOMEN: Soft and nontender. EXTREMITIES: Show no edema. LABORATORY DATA: Reveal total bilirubin of 1.4, AST 258, and ALT 544. CBC reveals white blood cell count of 6.7 and hemoglobin of 15.5. Sed rate from 04/29/2017 was 5. IMPRESSION: 1. Elevated liver enzymes secondary to alcohol abuse and alcoholic fatty liver. 2. Seizure disorder. 3. Back pain, secondary to compression fractures of lumbar spine, status post kyphoplasty. 4. Alcoholism. RECOMMENDATIONS: Continue current treatment. Again, I have enforced the importance of abstinence from alcohol to the patient. Bradford Solitario MD
--- NOTE | 2017-05-01 18:16 | VASCULAR ---
PROCEDURE: 1. T12 kyphoplasty. 2. L2 kyphoplasty. HISTORY: Severe, refractory back pain. Unresponsive to bed rest and analgesics. Acute T12, L2, and L3 compression fractures on MRI. PHYSICIAN(S): Jean Claude Yan MD. TECHNIQUE: he relative risks and indications of the procedure were explained to the patient and informed written consent obtained. The patient was placed prone on the arteriography table and the thoracolumbar spine prepped and draped in the usual sterile fashion. Conscious sedation and monitoring were provided throughout the procedure by a nurse. The T12 vertebral body was carefully localized with fluoroscopy. The skin and soft tissues were anesthetized with 1% Xylocaine. Under direct fluoroscopic guidance, bilateral transpedicular bone needles were placed into the posterior aspect of the T12 vertebral body. Next bilateral 15mm bone balloons were placed in the superior and anterior portion of the T12 vertebral body. They were inflated to approximately 3.5 cc apiece with dilute contrast. The balloons were removed and 4.5 cc of barium-impregnated PMMA cement instilled into the T12 vertebral body. No extravasation was seen. Next the L2 vertebral body was localized with fluoroscopy. The skin soft tissues were anesthetized 1 percent xylocaine. Under direct fluoroscopic guidance, bilateral transpedicular bone needles were placed into the posterior aspect of the L2 vertebral body. Bilateral 15 mm bone balloons were placed in the anterior and superior portion of the L2 vertebral body. They were inflated to approximately 3.5 cc apiece with dilute contrast. The balloons were removed and 4.5 cc of barium -impregnated PMMA cement instilled into L2 vertebral body. No extravasation was seen. The needles were removed. The patient tolerated the procedure well. IMPRESSION: 1. T12 kyphoplasty. 2. L2 kyphoplasty.
[2017-05-02 04:00] VITALS: O2SAT 98
[2017-05-02] MEDS: Pantoprazole 40 mg EC Tab PO SCH (06:13)
[2017-05-02] MEDS: Enoxaparin 40 mg Syringe SC SCH (09:20)
[2017-05-02] MEDS: Multivitamin With Minerals Tab PO SCH (09:42)
[2017-05-02] MEDS: Thiamine 100 mg/ml Inj IM SCH (09:42)
[2017-05-02] MEDS: Lidocaine 5% Patch TD SCH (09:46)
[2017-05-02 13:10] VITALS: PULSE 82
[2017-05-02 13:11] VITALS: BP 137/90; RESP 18; TEMP 98.7
--- NOTE | 2017-05-02 20:40 | PN ---
FINAL PROGRESS NOTE AND DISCHARGE SUMMARY DATE: 05/02/2017 SUBJECTIVE: The patient is seen in room 374, bed 2. The patient was initially observed. The patient was lying in the bed comfortable, in no distress, but as mentioned in the previous note, as soon as I said good morning or hello to the patient, the patient started complaining of back pain. The patient was made to sit up and ambulate without assistance. The patient was not observed to be in any pain while sitting up and ambulating. The patient was in no discomfort. The patient's overnight nurse's notes were reviewed. VITAL SIGNS: T-max 98.7; pulse 82; respirations 18; blood pressure 137/90, 136/80; O2 sat 96% to 98%. PHYSICAL EXAMINATION: GENERAL: The patient has a positive dressing of the upper lumbar and thoracic spine which is clear and clean. HEAD: Normocephalic, atraumatic. HEENT: Shows pink conjunctivae. Anicteric sclerae. No oropharyngeal lesion. No neck rigidity. No jugular venous distention. No audible carotid bruit. CHEST: Kyphosis. LUNGS: Show no rales, crackles, or wheezing. CARDIOVASCULAR: S1, S2. Regular rhythm. No audible murmur, gallop, or rub at this time. ABDOMEN: Soft. Positive bowel sounds. Protuberant. No hepatosplenomegaly noted. No guarding. No rigidity. No rebound tenderness. GENITALIA: Male. RECTAL: Deferred. EXTREMITIES: Show no pitting edema, no calf numbness, no Homans' sign. NEUROLOGIC: Motor strength is 5/5 in upper and lower extremities. Gait examination is independent without assistance. Cranial nerves II through XII intact. PSYCHIATRIC: As per the psychiatrist's recommendations. DIAGNOSTICS: None from today. FINAL IMPRESSION AND PLAN & DISCHARGE DIAGNOSES: 1. T12, L2, L3 acute versus subacute compression fracture. 2. Status post T12 and L2 kyphoplasty. 3. Chronic pain syndrome with narcotic and opiate seeking behavior. 4. History of nicotine, alcohol, or polysubstance abuse dependence and opiate dependence and narcotic abuse and dependence. 5. Hypertension. 6. Transaminitis with hepatitis C antibody reactive. 7. Witnessed syncope versus seizure with mouth foaming. 8. Transaminitis. 9. History of extremely poor compliance and noncompliance. Plan at this time, the patient has been ordered Lidoderm 5% patch to the lumbar spine area. The patient is on Ultram 50 mg 2 to 3 times a day p.r.n. for pain. The patient has been encouraged to encouraged to ambulate and be out of bed. The patient has been also explained that most likely patient would be considered for discharge within the next 24 hours if there are no complications observed from the kyphoplasty. The patient will be continued on p.r.n. medications which are as per the alcohol withdrawal protocol and drug withdrawal protocol. The patient will be continued on antihypertensive. The patient will be continued on thiamine. The patient will be continued on Zanaflex. The patient will be continued on Ultram. The patient will be continued on GI/DVT prophylaxis. Again, the patient was encouraged to be out of bed and ambulate as much as possible and sit in the chair rather than lying in the bed. ADDENDUM: PATIENT ELOPED FROM THE FLOOR LATER IN THE DAY, WITHOUT NOTIFYING THE STAFF AND NURSING Dictated and electronically signed, not read. Wilber Barreto MD [facility]
--- NOTE | 2017-05-02 23:31 | PN ---
DATE: 05/02/2017 SUBJECTIVE: The patient is in bed, in no acute distress, nontoxic. PHYSICAL EXAMINATION: VITAL SIGNS: Temperature is 98, blood pressure is 130/90, respiratory rate 18, and heart rate of 82. HEENT: Unremarkable. NECK: Supple. LUNGS: Have decreased breath sounds. HEART: Normal S1 and S2. ABDOMEN: Soft. LABORATORY DATA: Laboratory examination is noted. ASSESSMENT AND PLAN: This is a 41-year-old male, who was seen early this morning in 374, bed 2 with chronic back pain, history of intravenous drug abuse, alcoholism, hepatitis B and C, bipolar, depression, hypertension, anxiety, presenting with systemic inflammatory response syndrome with a fracture of L1 and L3. Off of antibiotics. No evidence of infection. Possible discharge today. We will follow with you. John Schmid MD
== END 2017-05-02 17:38 | disposition left against medical advice (07) | DRG 516 ==
LOC: ED 16:26 → ERH 19:34 → 3RSO 04-28 18:36
PROVIDERS: ADMIT Internal Medicine; ATTEND Internal Medicine
PROC: 0PS43ZZ Reposition Thoracic Vertebra, Percutaneous Approach (ICD-10-PCS; principal; 2017-05-01)
PROC: 0QS03ZZ Reposition Lumbar Vertebra, Percutaneous Approach (ICD-10-PCS; 2017-05-01)
PROC: 0QU03JZ Supplement Lumbar Vertebra with Synthetic Substitute, Percutaneous Approach (ICD-10-PCS; 2017-05-01)
PROC: 0PU43JZ Supplement Thoracic Vertebra with Synthetic Substitute, Percutaneous Approach (ICD-10-PCS; 2017-05-01)
DX: M48.54XA Collapsed vertebra, not elsewhere classified, thoracic region, initial encounter for fracture (principal); R65.10 Systemic inflammatory response syndrome (SIRS) of non-infectious origin without acute organ dysfunction; F10.231 Alcohol dependence with withdrawal delirium; D68.9 Coagulation defect, unspecified; E66.01 Morbid (severe) obesity due to excess calories; B19.10 Unspecified viral hepatitis B without hepatic coma; D75.1 Secondary polycythemia; E87.2 Acidosis; F11.20 Opioid dependence, uncomplicated; M51.26 Other intervertebral disc displacement, lumbar region; M48.56XA Collapsed vertebra, not elsewhere classified, lumbar region, initial encounter for fracture; R31.29 Other microscopic hematuria; Z76.5 Malingerer [conscious simulation]; Z91.19 Patient's noncompliance with other medical treatment and regimen; Z91.5 Personal history of self-harm; Z90.49 Acquired absence of other specified parts of digestive tract; B19.20 Unspecified viral hepatitis C without hepatic coma; D72.820 Lymphocytosis (symptomatic); E78.00 Pure hypercholesterolemia, unspecified; E83.41 Hypermagnesemia; E83.52 Hypercalcemia; F17.200 Nicotine dependence, unspecified, uncomplicated; F31.9 Bipolar disorder, unspecified; F41.9 Anxiety disorder, unspecified; F60.3 Borderline personality disorder; G40.909 Epilepsy, unspecified, not intractable, without status epilepticus; G47.00 Insomnia, unspecified; G89.4 Chronic pain syndrome; I07.1 Rheumatic tricuspid insufficiency; I11.9 Hypertensive heart disease without heart failure; I65.23 Occlusion and stenosis of bilateral carotid arteries; K21.9 Gastro-esophageal reflux disease without esophagitis; K59.00 Constipation, unspecified; K70.0 Alcoholic fatty liver; Z68.32 Body mass index [BMI] 32.0-32.9, adult; Z79.899 Other long term (current) drug therapy; Z80.8 Family history of malignant neoplasm of other organs or systems; Z82.49 Family history of ischemic heart disease and other diseases of the circulatory system; Z83.3 Family history of diabetes mellitus; D72.829 Elevated white blood cell count, unspecified; R16.2 Hepatomegaly with splenomegaly, not elsewhere classified; R74.0 Nonspecific elevation of levels of transaminase and lactic acid dehydrogenase [LDH]

== ENCOUNTER 2017-05-06 04:41 | Observation (INO) | payer MEDICARE, OTHER ==
[2017-05-06 04:41] VITALS: BMI 31.4
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
[2017-05-06] MEDS ORDERED: HYDROmorphone 1 mg/ml ISec IVP STA (05:13)
[2017-05-06 06:03] LABS: HEMOGLOBIN 16.8 g/dL (14.0-18.0); MEAN CORPUSCULAR HEMOGLOBIN 32.6 pg (25.0-35.0); MEAN CORPUSCULAR HGB CONC 34.9 g/dl (31.0-37.0); MEAN PLATELET VOLUME 9.7 fl (7.0-11.0); RBC 5.15 10^6/uL (3.5-6.1); RED CELL DISTRIBUTION WIDTH 14.3 % (11.5-14.5); WHITE BLOOD COUNT 10.1 10^3/ul (4.5-11.0)
[2017-05-06 06:13] LABS: ALBUMIN 4.7 g/dL (3.0-4.8); ALT/SGPT 474 U/L (7-56); AST/SGOT 188 U/L (17-59); BLOOD UREA NITROGEN 7 mg/dL (7-21); CALCIUM 10.7 mg/dL (8.4-10.5); GFR AFRICAN-AMERICAN > 60; GFR NON-AFRICAN AMERICAN > 60
[2017-05-06 06:29] LABS: MEAN CELL VOLUME 93.4 fl (80.0-105.0)
[2017-05-06] MEDS: Dextrose 5%/0.45% NS 1,000 ML IV SCH (08:45)
[2017-05-06 09:01] LABS: INR 1.37 (0.93-1.08); PARTIAL THROMBOPLASTIN TIME 35.5 Seconds (25.1-36.5); PROTHROMBIN TIME 15.8 SECONDS (9.4-12.5)
[2017-05-06] MEDS: Multivitamin With Minerals Tab PO SCH (09:32)
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
--- NOTE | 2017-05-06 16:28 | MRI ---
PROCEDURE: MRI lumbar spine dated 05/06/2017 HISTORY: Back pain. Evaluate L3. History of T12 an spell d L1 kyphoplasty. COMPARISON: Comparison made with prior MRI lumbar spine dated 04/28/2017 TECHNIQUE: Multiecho multiplanar sequences were performed through the lumbar spine without the use of intravenous contrast. Study is limited by motion artifact. FINDINGS: The current study reveals elliptical shaped areas of very dark T1/T2 signal (Consistent with kyphoplasty cement) within the partially collapsed L2 and T12 segments. Some mild edema within the marrow that surrounds the kyphoplasty cement. . Concave endplate deformities of the inferior T12 and superior -inferior L2 endplates noted. There is mild edema within L3 segment consistent with early -developing osteoporotic compression fracture which also exhibit the concave endplate deformities both superiorly and inferiorly. Mild concave endplate deformities of the superior and inferior L3 segments. There is mild but increased retropulsion of the posterior superior corner of the T12 segment compared to prior exam. This retropulsed fragment results in mild to moderate focal compressive effects on the ventral surface of the thecal sac more so on the right side with posterior displacement of the ventrally located intrathecal nerve roots of the cauda equina. . Minimal posterior bowing/ buckling of the L2 vertebral body segment also slightly increased from prior study. Of. There is associated mild canal narrowing and compressive effects on the ventral surface of the thecal sac and intrathecal nerve roots of the cauda equina as well No significant retropulsion of the posterior L3 cortex. Re- demonstrated is mild multilevel degenerative spondylosis most notably affecting L4-L5 L4-L5 and L5-S1 levels. At the L4-L5 level, there is disc desiccation and minor posterior disc space narrowing with small central and bilateral disc bulge ridge complex that indents the ventral surface of the thecal sac. There is a tiny annular fissure in the posterior disc margin as well. Facet joints are hypertrophic. Disc does extend slightly into the proximal inferior margins of both exit foramina. Exit foramina appear marginal to slightly narrowed. The L5-S1 level, there is adequate disc hydration though minor posterior disc space narrowing. Small central and bilateral disc bulge ridge complex also minimally flattens the ventral surface of thecal sac however the overall central canal appears adequate. Facet joints are hypertrophic. Exit foramina adequate. IMPRESSION: Limited motion degraded study. There is a early developing osteoporotic fracture L3 segment. . There has been interval placement of kyphoplasty cement within partially collapsed L2 and T12 segments. Slight increased retropulsion of the posterior superior corner of the T12 segment that does result in compressive effects on the thecal sac and intrathecal nerve roots of the cauda equina. There is mild uptake bowing/posterior cortical buckling L2 segment that results in mild compressive effects on the ventral surface of the thecal sac and posterior displacement of the intrathecal nerve roots of the cauda equina. Multilevel degenerative spondylosis as detailed above.
[2017-05-06] MEDS ORDERED: Influenza Vaccine 60 mcg/0.5 mL SYR (4YR UP) IM ONE (21:59)
[2017-05-06] MEDS ORDERED: Pneumococcal 23-Valent Vaccine IM ONE (21:59)
[2017-05-07] MEDS: Dextrose 5%/0.45% NS 1,000 ML IV SCH (05:31)
[2017-05-07] MEDS: Pantoprazole 40 mg EC Tab PO SCH (05:32)
[2017-05-07 06:52] LABS: BASO # 0.04 K/mm3 (0.0-2.0); BASO % 0.5 % (0.0-3.0); EOS # 0.3 (0.0-0.7); EOS % 3.3 % (1.5-5.0); GRAN # 3.98 (1.4-6.5); GRAN % 52.3 % (50.0-68.0); HEMOGLOBIN 15.5 g/dL (14.0-18.0); LYMPH # 2.4 (1.2-3.4); MEAN CELL VOLUME 96.9 fl (80.0-105.0); MEAN PLATELET VOLUME 9.7 fl (7.0-11.0); MONO # 0.9 (0.1-0.6); MONO % 11.9 % (1.0-6.0); RBC 4.84 10^6/uL (3.5-6.1); RED CELL DISTRIBUTION WIDTH 14.6 % (11.5-14.5); WHITE BLOOD COUNT 7.6 10^3/ul (4.5-11.0)
[2017-05-07 07:07] LABS: BARBITURATES, UR NEGATIVE (NEGATIVE); PHENCYCLIDINE, UR NEGATIVE (NEGATIVE)
[2017-05-07 07:38] LABS: BENZODIAZEPINES, UR POSITIVE (NEGATIVE); OPIATES, UR POSITIVE (NEGATIVE)
[2017-05-07 07:39] LABS: ALB/GLOB RATIO 1.1 (1.1-1.8); ALBUMIN 4.2 g/dL (3.0-4.8); ALT/SGPT 446 U/L (7-56); AST/SGOT 196 U/L (17-59); BLOOD UREA NITROGEN 14 mg/dL (7-21); CALCIUM 10.5 mg/dL (8.4-10.5); GFR AFRICAN-AMERICAN > 60; GFR NON-AFRICAN AMERICAN > 60
--- NOTE | 2017-05-07 07:42 | HP ---
HISTORY OF PRESENT ILLNESS: The patient is a 41-year-old male who came to the Emergency Room complaining of recurrent back pain. The patient eloped from the hospital on 05/02/2017. The patient was admitted from 04/27/2017 to 05/10/2017. The patient eloped on 05/02/2017. The patient came back today complaining of recurrent back pain. The patient recently had T12-L2 kyphoplasty. The patient states that the back pain is worse when ambulating and complaining of back pain. The patient denies any bowel, bladder incontinence. Denies any nausea, vomiting or diarrhea. Denies any hemoptysis, hematemesis or melena. Denies any seizure or syncope. REVIEW OF SYSTEMS: A 13-system review was done, pertinent positive negative dictated above. CODE STATUS: Full code. LIVING WILL ADVANCE DIRECTIVES: None. ALLERGIES: NONE. HEIGHT: 5 feet 11 inches. WEIGHT: 225. BMI: 32. HOME MEDICATIONS: None. SOCIAL HISTORY: Positive for polysubstance abuse, history of alcohol abuse and addiction, and history of nicotine abuse and dependence. Positive for cocaine and heroin. FAMILY HISTORY: Positive for diabetes. PAST MEDICAL HISTORY: Significant for witnessed syncope versus possible seizure with mouth foaming, history of back pain and chest pain, history of tachycardia, history of uncontrolled hypertension with accelerated hypertension, history of hypertensive emergency and urgency, history of tachypnea, history of systemic inflammatory response syndrome, history of leukocytosis, erythrocytosis, and lymphocytosis, history of increased anion gap metabolic acidosis and lactic acidosis, history of hypercalcemia, hypermagnesemia, hyperglycemia, microscopic hematuria, history of alcohol dependence, history of polysubstance abuse and dependence, history of poor compliance, history of bipolar disorder, history of hepatic steatosis and fatty liver, history of cholecystectomy, history of constipation, history of L1-L3 vertebral body fracture with retropulsion, history of cerebral cortical atrophy of brain, history of right frontal retention cyst, history of sinus tachycardia, history of mood disorder, history of bipolar disorder, history of multiple inpatient psychiatric placements, history of recently discharged from [facility], history of chronic narcotic dependent pain syndrome, history of insomnia, nicotine, history of left leg injury, history of left neck surgery, history of right shoulder rotator cuff surgery, history of gastroesophageal reflux, history of seizure disorder, history of depression and anxiety, history of heroin use, history of hepatitis B and C, history of lumbar disk disease, history of marijuana, cocaine, and heroin abuse, history of borderline B12 deficiency, history of obesity with elevated body mass index, history of hepatomegaly and hepatic steatosis, and history of questionable mesenteric adenitis, history of mixed type bipolar disorder, history of borderline personality disorder, history of ethylene glycol intoxication, history of suicide attempt by drinking antifreeze mixed with Gatorade, history of right shoulder dislocation, and history of cervical spine degenerative disk disease with cervical spine foraminal stenosis, history of status post T12, L2, L3 acute versus subacute compression fracture, history of T12-L2 kyphoplasty, history of chronic narcotic dependent pain syndrome and opiate seeking behavior, history of transaminitis with hepatitis C antibody reactive. Past medical history is significant for history of granulocytosis, history of hypercholesteremia, history of alcohol related seizure versus delirium tremens and alcohol withdrawal seizure, history of atypical chest pain, history of hyperbilirubinemia, history of microscopic hematuria, history of morbid obesity, history of chronic back pain syndrome, history of episodic sinus bradycardia, history of mild coagulopathy, history of bilateral internal carotid artery 28%-39% stenosis, history of hypertensive cardiovascular disease, history of mildly dilated right and left atrium, history of mild tricuspid regurgitation, history of left ventricular ejection fraction of 58%, history of questionable alcohol withdrawal seizure versus alcohol related seizure. The patient's past medical history is also significant history of L4-L5 broad-based central disk protrusion and history of hepatosplenomegaly with fatty infiltration of the liver, history of left leg necrotizing fasciitis and left leg surgery. The patient is seen in the Emergency Room, bed 7. Then an MRI and then the patient was also examined at three places and then finally in room 560, bed 1. PHYSICAL EXAMINATION: GENERAL: The patient was seen lying in the bed. VITAL SIGNS: T max is 99.7, heart rate 69-74, blood pressure is 160/95, 146/94, 157/94, 138/104, 138/91, 127/74, 148/96, respirations 18, O2 sat 97%-98%. HEENT: Head examination normocephalic, atraumatic. HEENT examination shows pink conjunctivae. Anicteric sclerae. No oropharyngeal lesion. NECK: No neck rigidity. No audible carotid bruit. No jugular venous distention. CHEST: Symmetrical. Positive right shoulder surgical scar noted. Kyphosis. LUNGS: Shows no rales, crackles or wheezing. CARDIOVASCULAR: S1 and S2, regular rhythm. No audible murmur, gallop or rub. ABDOMEN: Soft. Positive bowel sounds. Protuberant, obese abdomen: No hepatosplenomegaly noted. No guarding. No rigidity. No rebound tenderness. Positive cholecystectomy surgical scar noted. GENITALIA: Male. RECTAL: Deferred. EXTREMITIES: Shows positive left leg surgical scar with skin changes of the left leg lateral aspect. No pitting edema. No calf tenderness, no Homans' sign. No clubbing, no cyanosis. VASCULAR: Palpable pulses. NEUROLOGIC: The patient is alert, awake, and oriented x3. Able to move upper and lower extremities without assistance. Motor strength is 5/5 in upper and lower extremities. Gait examination is not tested. The patient's plantars are downward. DTRs at 2+. Gait examination is not tested. Cranial nerves II-XII intact. Motor strength is 5/5. MUSCULOSKELETAL: Shows body mass index of 31.4. DIAGNOSTIC DATA: CBC is within normal limits. WBC 10.1, hemoglobin and hematocrit 16.8 and 48.1, and platelets 360. PT and PTT 15.8 and 35.5. Sodium 144, potassium 3.8, chloride 104, CO2 25, anion gap 19, BUN 7, creatinine 0.8, GFR greater than 60, glucose 103, calcium 10.7, AST 188, ALT 474, and alkaline phosphatase 136. Urine alcohol level is negative. The patient was seen by Interventional Radiology. MRI of the lumbar spine was ordered for evaluation of the kyphoplasty of the L3 vertebrae. MRI of the LS spine without contrast was done, the results were noted. The patient was treated in the Emergency Room by the ER physician, Dr. Olea, and the patient was advised to be admitted. IMPRESSION: 1. Recurrent back pain. 2. Status post kyphoplasty of the L2 and T12. 3. T12 retropulsion with compressive effect on the thecal sac and intrathecal nerve roots of the cauda equina. 4. Early L3 developing osteoporotic compression. 5. Retropulsion of the posterior superior aspect of the T12 segment. 6. Multilevel degenerative disk disease of the lumbar spine with disk desiccation and disk space narrowing and bilateral disk bulge. 7. Recurrent pain syndrome. 8. Questionable intractable back syndrome in a patient with narcotic and opiate dependent pain syndrome. 9. History of polysubstance abuse, history of alcohol abuse, history of nicotine addiction and dependence. 10. History of hepatitis C and severe transaminitis. 11. Hypertension. 12. History of bipolar disorder, history of borderline personality disorder, and insomnia. 13. Extremely poor compliance. 14. Obesity with elevated body mass index. PLAN: The patient has been admitted to Medicine Service. The patient's PT/PTT was ordered which is 15.8. The patient has been ordered urine drug screen. CONSULTATION: Dr. Jean Claude Yan. CURRENT MEDICATIONS: 1. Ativan 1 mg IV q.6 hours p.r.n. 2. Desyrel 50 mg at bedtime p.r.n. 3. IV fluid D5 half normal saline at 60 mL an hour. 4. Folic acid 1 mg daily. 5. DVT prophylaxis with heparin 5000 subcu q.8 hours. 6. Lopressor 25 mg twice a day. 7. Protonix 40 mg daily. 8. Multivitamin 1 tablet daily. 9. Toradol 30 mg IV q.8 hours p.r.n. 10. Ultram 50 mg q.8 hours p.r.n. 11. Thiamine 100 mg p.o. daily. 12. Zanaflex 2 mg 3 times a day p.r.n. 13. Zofran 4 mg IV q.6 hours p.r.n. The patient has been put on heart-healthy diet. In addition, the patient will be started on angiotensin receptive blockers for optimum blood pressure control. The patient will be started on Cozaar 50 mg daily to achieve optimal blood pressure control. The patient was seen and evaluated. The patient was explained about the details of his medical condition, diagnostic test results and need for further interventional radiology intervention. It was explained to the patient at length and all questions and concerned answered, which he acknowledged understood. The patient is admitted to [facility] pending further evaluation by Interventional Radiology.. The patient is seen and examined. Dictated and electronically signed, not read. Wilber Barreto MD [facility] # [id number] MTDD
[2017-05-07] MEDS ORDERED: Midazolam 2 MG/2 ML VIAL ONE ×4 (07:48→08:57)
[2017-05-07] MEDS ORDERED: Lidocaine 2% Inj (20ml) ONE (07:48)
--- NOTE | 2017-05-07 07:48 | CP.PCM.PN ---
<Brent Alcantara - Last Filed: 05/07/17 11:00> Subjective - Date & Time of Evaluation Date of Evaluation: 05/07/17 Time of Evaluation: 07:15 - Subjective Subjective: IM Progress Note for Dr. Barreto service Patient seen and examined at bedside. No acute events reported overnight. Pending IR procedure this AM. Still complaining of back pain, although appears to be resting well in bed. Denies chest pain, shortness of breath, nausea, emesis, loss of bowel/bladder control, focal weakness, or extremity paresthesias. Objective - Vital Signs/Intake and Output Vital Signs (last 24 hours): Temp Pulse Resp BP Pulse Ox 99.7 F H 88 18 148/88 97 05/06/17 21:32 05/06/17 21:32 05/06/17 21:32 05/06/17 21:32 05/06/17 16:20 Intake and Output: 05/07/17 05/07/17 06:59 18:59 Intake Total 1200 Output Total 400 Balance 800 - Medications Medications: Current Medications Folic Acid (Folic Acid) 1 mg PO DAILY [facility] Last Admin: 05/06/17 09:33 Dose: 1 mg Heparin Sodium (Porcine) (Heparin) 5,000 units SC Q8 [facility] PRN Reason: Protocol Last Admin: 05/07/17 05:32 Dose: Not Given Dextrose/Sodium Chloride (Dextrose 5%/0.45% Ns 1000 Ml) 1,000 mls @ 60 mls/hr IV .[id number] [facility] Last Admin: 05/07/17 05:31 Dose: 60 mls/hr Ketorolac Tromethamine (Toradol) 30 mg IVP Q8H PRN PRN Reason: Pain, moderate (4-7) Last Admin: 05/07/17 03:05 Dose: 30 mg Lorazepam (Ativan) 1 mg IVP Q6H PRN; Protocol PRN Reason: Anxiety Last Admin: 05/06/17 10:33 Dose: 1 mg Losartan Potassium (Cozaar) 50 mg PO DAILY [facility] Last Admin: 05/06/17 20:59 Dose: 50 mg Metoprolol Tartrate (Lopressor) 25 mg PO BID [facility] Last Admin: 05/06/17 18:21 Dose: 25 mg Multivitamins/Minerals (Therapeutic-M Tab) 1 tab PO 0800 [facility] Last Admin: 05/06/17 09:32 Dose: 1 tab Ondansetron HCl (Zofran Inj) 4 mg IVP Q6H PRN PRN Reason: Nausea/Vomiting Pantoprazole Sodium (Protonix Ec Tab) 40 mg PO 0600 [facility] Last Admin: 05/07/17 05:32 Dose: 40 mg Thiamine HCl (Vitamin B1 Tab) 100 mg PO DAILY [facility] Last Admin: 05/06/17 09:33 Dose: 100 mg Tizanidine HCl (Zanaflex) 2 mg PO TID PRN PRN Reason: Pain, moderate (4-7) Tramadol HCl (Ultram) 50 mg PO Q8H PRN PRN Reason: Pain, severe (8-10) Last Admin: 05/06/17 17:19 Dose: 50 mg Trazodone HCl (Desyrel) 50 mg PO HS PRN PRN Reason: Insomnia Last Admin: 05/06/17 21:00 Dose: 50 mg - Labs Labs: 05/07/17 06:00 05/07/17 06:00 PT 15.8 SECONDS (9.4-12.5) H 05/06/17 08:00 INR 1.37 (0.93-1.08) H 05/06/17 08:00 APTT 32.7 Seconds (25.1-36.5) 05/07/17 06:00 - Additional Findings Additional findings: - Constitutional Appears: Non-toxic, No Acute Distress, Appears to be resting comfortably in bed at a distance but complaining of pain throughout interview - Head Exam Head Exam: ATRAUMATIC, NORMAL INSPECTION, NORMOCEPHALIC - Eye Exam Eye Exam: EOMI, Normal appearance. absent: Conjunctival injection, Scleral icterus Pupil Exam: absent: Irregular, Unequal - ENT Exam ENT Exam: Mucous Membranes Moist - Respiratory Exam Respiratory Exam: Clear to Ausculation Bilateral, NORMAL BREATHING PATTERN. absent: Accessory Muscle Use, Chest Wall Tenderness, Decreased Breath Sounds, Rales, Rhonchi, Wheezes - Cardiovascular Exam Cardiovascular Exam: REGULAR RHYTHM, RRR, +S1, +S2. absent: Bradycardia, Tachycardia, Irregular Rhythm, JVD, +S4 - GI/Abdominal Exam GI & Abdominal Exam: Soft, Normal Bowel Sounds. absent: Distended, Guarding, Rigid, Tenderness - Extremities Exam Extremities Exam: Normal Capillary Refill, Normal Inspection. absent: Calf Tenderness, Pedal Edema, Tenderness - Back Exam Back Exam: lower lumbar tenderness bilaterally, no extension inferiorly into legs, local distribution only - Neurological Exam Neurological Exam: Awake and alert, following all commands appropriately, moving all extremities spontaneously Slight foot drop in left foot (pt states longstanding, due to nerve dmg during leg surgery for fascitis) - Psychiatric Exam Psychiatric exam: Anxious, normal affect - Skin Skin Exam: Dry, Intact, Normal Color, Warm Assessment and Plan - Assessment and Plan (Free Text) Assessment: This is a 41 yo M with a past medical history of alcohol abuse, Hepatitis C, Bipolar disorder, and depression, recently admitted for seizures likely secondary to alcohol withdrawal and s/p kyphoplasty for acute vs subacute compression fractures of T12, L2, and L3. Pending IR procedure for L3 fracture. Plan: 1) Intractable lower back pain -MRI Lumbar Spine showing mild acute vs subacute compression fractures of T12, L2 and L3 during last admission, s/p kyphoplasty of T12/L2 fx -Toradol PRN and Xanaflex for pain control -during last admission, was seen by Neuro for seizures, who recommended avoiding opioid pain medications for pain control as they can lower seizure threshold -IR re-consulted for intractable back pain and spinal fx, appreciate all recs, pending IR procedure this AM; as per IR, kyphoplasty of L3 spine, can be discharged tomorrow -PT/OT, encouraged OOB to chair as tolerated -MRI lumbar spine notable for developing osteoporotic fracture L3 segment, multilevel degenerative spondylosis 2) Alcohol Abuse/Withdrawal -Patient denies any alcohol intake since eloping from the hospital on 05/02/17, denies any new seizures -Ativan 1mg IVP q6 PRN for withdrawal sx -Daily Folic Acid, Thiamine and MV supplementation -[facility] Protocol ordered -Seizure, Aspiration and Fall precautions in place 3) History of Hepatitis C with associated transaminitis -Abdominal ultrasound during last admit notable for hepatosplenomegaly, fatty infiltration of liver -Some improvement in LFTs today as compared to last labs before elopement, AST 188 (was 258), ALT 474 (was 544), Tbili 0.9 (was 1.4) -Hepatitis Panel showing antibodies to Hepatitis C 4) History of HTN -Continue Metoprolol 5) History of Bipolar disorder -would hold haldol for now, given liver disease and untreated Hep C -stable for now, continue to monitor 6) History of Insomnia -Continue home Trazadone Dispo: Med/Surg obs, pending IR procedure, pending discharge tomorrow FEN: Heart-healthy diet Access: Peripheral IV Consults: IR Ppx: Protonix for GI, Lovenox for DVT Patient seen, reviewed, and discussed with attending, Dr. Barreto <Wilber Barreto - Last Filed: 06/02/17 15:54> Objective - Vital Signs/Intake and Output Vital Signs (last 24 hours): Temp Pulse Resp BP Pulse Ox 98.0 F 64 16 127/83 98 05/08/17 07:30 05/08/17 10:17 05/08/17 07:30 05/08/17 10:17 05/08/17 07:30 - Labs Labs: 05/07/17 06:00 05/07/17 06:00 PT 15.8 SECONDS (9.4-12.5) H 05/06/17 08:00 INR 1.37 (0.93-1.08) H 05/06/17 08:00 APTT 32.7 Seconds (25.1-36.5) 05/07/17 06:00 Attending/Attestation - Attestation I have personally seen and examined this patient.: Yes I have fully participated in the care of the patient.: Yes I have reviewed all pertinent clinical information, including history, physical exam and plan: Yes Notes (Text): Please see/read my dictated notes.
[2017-05-07] MEDS ORDERED: HEPARIN SODIUM/NS 2,000 ML IV ONE (07:49)
[2017-05-07] MEDS ORDERED: Iodixanol 320 MG/ML 100 ML BOTTLE IV ONE (07:49)
[2017-05-07] MEDS ORDERED: Iohexol 350mgl/ml 50 ML ONE (07:57)
[2017-05-07] MEDS ORDERED: HYDROmorphone 2 mg/ml ISec IVP STA (09:45)
[2017-05-07] MEDS ORDERED: HYDROmorphone 0.5 mg/0.5 ml ISec IVP ONE (09:45)
[2017-05-07] MEDS ORDERED: HYDROmorphone 2 mg/ml ISec ONE (09:48)
[2017-05-07] MEDS: Multivitamin With Minerals Tab PO SCH (10:30)
[2017-05-07 16:25] VITALS: RESP 16
[2017-05-07] MEDS: Sodium Chloride 0.45% 1,000 ML IV SCH (17:05)
--- NOTE | 2017-05-07 18:17 | VASCULAR ---
PROCEDURE: 1. L3 kyphoplasty. 2. L3 vertebral body biopsy. HISTORY: Severe, refractory back pain. Unresponsive to bed rest and analgesics. Acute T12, L2, and L3 compression fractures on MRI. Previous T12 and L2 kyphoplasties. Still with persistent pain. PHYSICIAN(S): Jean Claude Yan MD. TECHNIQUE: he relative risks and indications of the procedure were explained to the patient and informed written consent obtained. The patient was placed prone on the arteriography table and the thoracolumbar spine prepped and draped in the usual sterile fashion. Conscious sedation and monitoring were provided throughout the procedure by a nurse. The L3 vertebral body was carefully localized with fluoroscopy. The skin and soft tissues were anesthetized with 1% Xylocaine. Under direct fluoroscopic guidance, bilateral transpedicular bone needles were placed into the posterior aspect of the L3 vertebral body. Next bilateral 15mm bone balloons were placed in the superior and anterior portion of the L3 vertebral body. They were inflated to approximately 4 cc apiece with dilute contrast. The balloons were removed and 6.5cc of barium-impregnated PMMA cement instilled into the L3 vertebral body. No extravasation was seen. The bone needles were removed. The patient tolerated the procedure well. IMPRESSION: 1. Fluoroscopically-guided L3 kyphoplasty.
[2017-05-08] MEDS: Pantoprazole 40 mg EC Tab PO SCH (05:20)
[2017-05-08] MEDS: Sodium Chloride 0.45% 1,000 ML IV SCH (05:28)
[2017-05-08 07:54] VITALS: BP 127/83; PULSE 64; TEMP 98; O2SAT 98
[2017-05-08] MEDS: Multivitamin With Minerals Tab PO SCH (08:06)
--- NOTE | 2017-05-08 10:21 | CP.PCM.DIS ---
Provider - Provider Date of Admission: 05/06/17 06:50 Attending physician: Wilber Barreto MD Primary care physician: NO PRIMARY CARE PROVIDER Consults: IR: Dr. Jean Claude Yan Time Spent in preparation of Discharge (in minutes): 35 Diagnosis - Discharge Diagnosis (1) Vertebral compression fracture Status: Acute Priority: High (2) Intractable back pain Status: Chronic Priority: Medium (3) S/P kyphoplasty Status: Acute Priority: High (4) Alcohol withdrawal syndrome Status: Chronic Priority: Medium Hospital Course - Lab Results Lab Results: Most Recent Lab Values WBC 7.6 10^3/ul (4.5-11.0) D 05/07/17 06:00 RBC 4.84 10^6/uL (3.5-6.1) 05/07/17 06:00 Hgb 15.5 g/dL (14.0-18.0) 05/07/17 06:00 Hct 46.9 % (42.0-52.0) 05/07/17 06:00 MCV 96.9 fl (80.0-105.0) D 05/07/17 06:00 MCH 32.0 pg (25.0-35.0) 05/07/17 06:00 MCHC 33.0 g/dl (31.0-37.0) 05/07/17 06:00 RDW 14.6 % (11.5-14.5) H 05/07/17 06:00 Plt Count 331 10^3/uL (120.0-450.0) 05/07/17 06:00 MPV 9.7 fl (7.0-11.0) 05/07/17 06:00 Gran % 52.3 % (50.0-68.0) 05/07/17 06:00 Lymph % (Auto) 32.0 % (22.0-35.0) 05/07/17 06:00 [place] % (Auto) 11.9 % (1.0-6.0) H 05/07/17 06:00 Eos % (Auto) 3.3 % (1.5-5.0) 05/07/17 06:00 Baso % (Auto) 0.5 % (0.0-3.0) 05/07/17 06:00 Gran # 3.98 (1.4-6.5) 05/07/17 06:00 Lymph # 2.4 (1.2-3.4) 05/07/17 06:00 [place] # 0.9 (0.1-0.6) H 05/07/17 06:00 Eos # 0.3 (0.0-0.7) 05/07/17 06:00 Baso # 0.04 K/mm3 (0.0-2.0) 05/07/17 06:00 PT 15.8 SECONDS (9.4-12.5) H 05/06/17 08:00 INR 1.37 (0.93-1.08) H 05/06/17 08:00 APTT 32.7 Seconds (25.1-36.5) 05/07/17 06:00 Sodium 139 mmol/L (132-148) 05/07/17 06:00 Potassium 3.9 mmol/L (3.6-5.0) 05/07/17 06:00 Chloride 103 mmol/L (98-107) 05/07/17 06:00 Carbon Dioxide 25 mmol/L (21-33) 05/07/17 06:00 Anion Gap 15 (10-20) 05/07/17 06:00 BUN 14 mg/dL (7-21) 05/07/17 06:00 Creatinine 1.0 mg/dl (0.8-1.5) 05/07/17 06:00 Est GFR ( Amer) > 60 05/07/17 06:00 Est GFR (Non-Af Amer) > 60 05/07/17 06:00 Random Glucose 96 mg/dL (70-110) 05/07/17 06:00 Calcium 10.5 mg/dL (8.4-10.5) 05/07/17 06:00 Total Bilirubin 0.8 mg/dL (0.2-1.3) 05/07/17 06:00 AST 196 U/L (17-59) H 05/07/17 06:00 ALT 446 U/L (7-56) H 05/07/17 06:00 Alkaline Phosphatase 145 U/L (38-126) H 05/07/17 06:00 Total Protein 7.9 g/dL (5.8-8.3) 05/07/17 06:00 Albumin 4.2 g/dL (3.0-4.8) 05/07/17 06:00 Globulin 3.7 gm/dL 05/07/17 06:00 Albumin/Globulin Ratio 1.1 (1.1-1.8) 05/07/17 06:00 Urine Opiates Screen Positive (NEGATIVE) H 05/07/17 06:39 Urine Methadone Screen Negative (NEGATIVE) 05/07/17 06:39 Ur Barbiturates Screen Negative (NEGATIVE) 05/07/17 06:39 Ur Phencyclidine Scrn Negative (NEGATIVE) 05/07/17 06:39 Ur Amphetamines Screen Negative (NEGATIVE) 05/07/17 06:39 U Benzodiazepines Scrn Positive (NEGATIVE) 05/07/17 06:39 U Oth Cocaine Metabols Negative (NEGATIVE) 05/07/17 06:39 U Cannabinoids Screen Negative (NEGATIVE) 05/07/17 06:39 Alcohol, Quantitative < 10 mg/dL (0-10) 05/06/17 07:00 - Hospital Course Hospital Course: This is a 41 yo M with a past medical history of alcohol abuse, Hepatitis C (untreated), Bipolar disorder, and depression who represents to [facility] with complaint of intractable back pain persisting since his elopement on . Last admission was from 04/27/17-05/02/17 for seizures likely secondary to alcohol withdrawal and back pain likely due to acute vs subacute lumbar spine compression fractures. During the last admission, patient underwent kyphoplasty of T12 and L2 fractures by IR on 05/01/17, with instructions to follow up as an outpatient at a later date for L3 fracture kyphoplasty. However , he later eloped after complaining that he felt like nothing was being done to help him. He returned due to persistence of pain, and was re-seen by IR, who performed an L3 kyphoplasty on 05/07/17. Pt reports improved pain control since that time, and was cleared for discharge by IR for today, with recommendation for PT. As per PT, can be followed by outpatient PT. Scripts for Toradol 10mg PO q8 PRN and Zanaflex 2mg PO TID PRN were electronically transmitted to in- house outpt pharmacy for availability on discharge. He was also given a script for outpatient physical therapy. Patient was instructed to take medications as prescribed, to abstain from all further alcohol use, to establish himself with and follow up with a PMD within 1 week, and to establish with and participate in PT after discharge. Patient expressed understanding and agreement with these instructions. Patient was then discharged. Reviewed and discussed with attending, Dr. Prabhakar. Discharge Exam - Additional Findings Additional findings: - Constitutional Appears: Non-toxic, No Acute Distress, resting comfortably in bed - Head Exam Head Exam: ATRAUMATIC, NORMAL INSPECTION, NORMOCEPHALIC - Eye Exam Eye Exam: EOMI, Normal appearance. absent: Conjunctival injection, Scleral icterus Pupil Exam: absent: Irregular, Unequal - ENT Exam ENT Exam: Mucous Membranes Moist - Respiratory Exam Respiratory Exam: Clear to Ausculation Bilateral, NORMAL BREATHING PATTERN. absent: Accessory Muscle Use, Chest Wall Tenderness, Decreased Breath Sounds, Rales, Rhonchi, Wheezes - Cardiovascular Exam Cardiovascular Exam: REGULAR RHYTHM, RRR, +S1, +S2. absent: Bradycardia, Tachycardia, Irregular Rhythm, JVD, +S4 - GI/Abdominal Exam GI & Abdominal Exam: Soft, Normal Bowel Sounds. absent: Distended, Guarding, Rigid, Tenderness - Extremities Exam Extremities Exam: Normal Capillary Refill, Normal Inspection. absent: Calf Tenderness, Pedal Edema, Tenderness - Back Exam Back Exam: decreased lower lumbar tenderness, still no extension inferiorly into legs - Neurological Exam Neurological Exam: Awake and alert, following all commands appropriately, moving all extremities spontaneously Slight foot drop in left foot (pt states longstanding, due to nerve dmg during leg surgery for fascitis) - Psychiatric Exam Psychiatric exam: Anxious, normal affect - Skin Skin Exam: Dry, Intact, Normal Color, Warm Discharge Plan - Discharge Medications Prescriptions: Ketorolac Tromethamine [Toradol] 10 mg PO Q8 #6 tab tiZANidine [Zanaflex] 2 mg PO TID PRN #15 tab PRN Reason: Pain, Moderate (4-7) - Follow Up Plan Condition: STABLE Disposition: HOME/ ROUTINE Instructions: Pneumococcal Vaccine for Adults (GEN), Heart Healthy Diet (GEN), Vertebral Compression Fracture (DC), Influenza Vaccine (GEN), Abuse of Alcohol ( DC), Kyphoplasty (DC), Back Pain (GEN) Additional Instructions: Please establish yourself with and follow up with a Primary Medical Doctor within 1 week. Please establish yourself with and follow up with outpatient physical therapy; you have been given a script for PT. Please fill your prescriptions and take only as instructed. Please avoid all further alcohol use. Return to an emergency department if you experience worsening or new concerning symptoms. Referrals: PCP,NO [Primary Care Provider] -
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
--- NOTE | 2017-05-10 21:45 | PN ---
DATE: 05/07/2017 LOCATION: The patient was seen in room 560, bed 1. SUBJECTIVE: The patient at present is ambulating with physical therapist. The patient came back after kyphoplasty early this morning. The patient was found to be alert, awake, oriented x3. Overnight nurse's were reviewed. The patient had some mild back pain, complains of back pain but the patient was seen ambulating with physical therapy without any complaints of pain. The patient's overnight nurse's notes were reviewed. The patient is ambulating with physical therapy without any complaints of pain. The patient is alert, awake, and oriented x3. REVIEW OF SYSTEMS: Thirteen system review was done, pertinent positive and negative dictated above. OBJECTIVE: VITAL SIGNS: T-max 99.7 to 100.0 overnight. Blood pressure in the last 24 hours 160/95, 146/94, 157/98, 139/91, 124/48, 135/86, 148/96, 148/88, 122/74. Respirations 16-18. O2 sat 98%. HEENT: Head examination normocephalic, atraumatic. HEENT examination shows pink conjunctivae. Anicteric sclerae. No oropharyngeal lesion. No neck rigidity. Positive right shoulder surgical scar noted. No audible carotid bruit. No jugular venous distention. CHEST: Kyphosis. LUNGS: Shows no rales, crackles or wheezing. CARDIOVASCULAR: S1, S2, regular rhythm. ABDOMEN: Soft. Positive bowel sounds. Healed surgical scar of cholecystectomy. No hepatosplenomegaly noted. No guarding. No rigidity. No rebound tenderness. GENITALIA: Male. RECTAL: Deferred. EXTREMITIES: Shows no pitting edema. No calf tenderness. No Homans' sign. Spinal examination shows positive dressing of the spine area noted. No costovertebral angle tenderness noted. Gait examination is independent with assistance of physical therapy. The patient was also observed going up and down the stairs with the physical therapy. NEUROLOGIC: The patient is alert, awake, oriented x3. Cranial nerves II-XII intact. Gait examination as above. No gross deficit noted. MUSCULOSKELETAL: Shows a body mass index of 32. DIAGNOSTICS: On 05/07/2017; WBC 7.6, hemoglobin/hematocrit 15.5/46.9, platelets 331. PT/PTT 15.8/32.7. Sodium 39, potassium 3.9, chloride 103, CO2 of 25, anion gap 15, BUN 14, creatinine 1.1, GFR greater than 60, glucose 96, calcium 10.5. AST is 196, ALT is 446, alk phos 145. Urine drug screen positive for opiate, alcohol negative. The patient underwent repeat lumbar spine MRI by Dr. Jean Claude Yan prior to kyphoplasty. IMPRESSION AND PLAN: 1. Chronic recurrent/refractory back pain. 2. Early developing L3 osteoporotic segment. 3. Multilevel degenerative spondylosis and degenerative disc disease and spine disease of the lumbar thoracic spine. 4. Acute T12, L2, L3 compression fracture. 5. Status post T12 and L2 kyphoplasty. 6. Status post fluoroscopic guided L3 kyphoplasty. 7. Obesity with elevated body mass index of 32. 8. Hypertension. 9. History of nicotine, alcohol and polysubstance abuse and dependence. 10. History of opiate dependence. 11. Transaminitis. 12. Urine drug screen positive for opiates. 13. History of poor compliance. 1. Recurrent back pain. 2. Status post kyphoplasty of the L2 and T12. 3. T12 retropulsion with compressive effect on the thecal sac and intrathecal nerve roots of the cauda equina. 4. Early L3 developing osteoporotic compression. 5. Retropulsion of the posterior superior aspect of the T12 segment. 6. Multilevel degenerative disk disease of the lumbar spine with disk desiccation and disk space narrowing and bilateral disk bulge. 7. Recurrent pain syndrome. 8. Questionable intractable back syndrome in a patient with narcotic and opiate dependent pain syndrome. 9. History of polysubstance abuse, history of alcohol abuse, history of nicotine addiction and dependence. 10. History of hepatitis C and severe transaminitis. 11. Hypertension. 12. History of bipolar disorder, history of borderline personality disorder, and insomnia. 13. Extremely poor compliance. 14. Obesity with elevated body mass index. Plan at this time, patient is to be observed overnight post kyphoplasty. The patient's management was discussed with Dr. Jean Claude Yan. His recommendation is to observe the patient overnight and patient can be discharged in a.m. with outpatient physical therapy. Which was also explained to the patient at length. The patient at present will be continued on physical therapy, gait training, ambulation training. CURRENT MEDICATIONS: Ativan 1 mg IV q.6h. p.r.n., Cozaar 50 mg daily, Desyrel 50 mg h.s. p.r.n., folic acid 1 mg daily, heparin 5000 subcu q.8, Lopressor 25 mg twice a day, Protonix 40 mg daily, patient is on IV fluid at 80 mL an hour, Toradol 30 mg IV q.8 hours p.r.n. x6 doses, Ultram 50 mg q.8h. p.r.n., thiamine 100 mg p.o. daily, Zanaflex 2 mg 3 times a day p.r.n., and Zofran 4 mg IV q.6 hours p.r.n. If the patient is stable without any complication post kyphoplasty, the patient will be considered for discharge home in the a.m. with outpatient physical therapy which has been explained to the patient, which he acknowledged and understand. All questions concerned answered. Dictated and electronically signed, not read. Wilber Barreto MD MTDD
== END 2017-05-08 18:00 | disposition home or self-care (01) ==
LOC: ED 04:41 → ERH 06:50 → 5RNO 18:29
PROVIDERS: ADMIT Internal Medicine; ATTEND Internal Medicine
DX: M80.88XA Other osteoporosis with current pathological fracture, vertebra(e), initial encounter for fracture (principal); F10.239 Alcohol dependence with withdrawal, unspecified; M47.894 Other spondylosis, thoracic region; M47.896 Other spondylosis, lumbar region; B19.20 Unspecified viral hepatitis C without hepatic coma; F31.9 Bipolar disorder, unspecified; E78.00 Pure hypercholesterolemia, unspecified; G89.4 Chronic pain syndrome; M81.0 Age-related osteoporosis without current pathological fracture; I11.9 Hypertensive heart disease without heart failure; R16.2 Hepatomegaly with splenomegaly, not elsewhere classified; K76.0 Fatty (change of) liver, not elsewhere classified; G47.00 Insomnia, unspecified; F41.9 Anxiety disorder, unspecified; M51.34 Other intervertebral disc degeneration, thoracic region; Y90.0 Blood alcohol level of less than 20 mg/100 ml; E66.9 Obesity, unspecified; Z68.32 Body mass index [BMI] 32.0-32.9, adult; F11.20 Opioid dependence, uncomplicated
CPT/HCPCS: 22514; 36415; 72148; 80053; 85025; 85027; 85610; 85730; 96372; 96374; 96375; 96376; 97116; 97161; 97530; 99152; 99153; 99285; C1713; G0378; G0480; G8978; G8979; G8980; J1170; J1644; J1885; J2060; J2250; J2405; J3010; J7030; J7042; Q9967